=== PATIENT | male | born 1945 | race Caucasian/White ===

== ENCOUNTER → 2016-07-30 | Outpatient (REF) | payer MEDICARE, BC ==
[~2016-07-30] MED LIST: /CELE20CA PO; /PREG50CA PO; ASPI81TA4 PO; CALCIUM CITR PO; COMBO CREAM EXT; DOCU10ELUD PO; NUCY50TA PO; OMEP20TA7 PO; PERCOCET PO; VIT D PO; VITA-113 PO; ZOCO40TA PO; flaxseed PO
== END ==
LOC: M SFHCCLAY 08:52
PROVIDERS: ATTEND Family Medicine
DX: E11.40 Type 2 diabetes mellitus with diabetic neuropathy, unspecified (principal)
CPT/HCPCS: 83036; G0463

== ENCOUNTER 2017-04-23 06:53 | Day surgery (SDC) | payer MEDICARE, BC ==
[2017-04-23] MEDS: NS 1,000 ML IV (07:00)
[2017-04-23] MEDS ORDERED: PROPOFOL 200 MG/20 ML VIAL As Ordered ×2 (07:50)
[2017-04-23] MEDS ORDERED: LIDOCAINE 2% INJ 100 MG/5 ML SDV (FOR ANES.) As Ordered (07:50)
== END 2017-04-23 08:20 | disposition home or self-care (01) ==
LOC: M OPP 06:53
DX: Z12.11 Encounter for screening for malignant neoplasm of colon (principal); K57.30 Diverticulosis of large intestine without perforation or abscess without bleeding; K64.0 First degree hemorrhoids; K29.70 Gastritis, unspecified, without bleeding; I48.91 Unspecified atrial fibrillation; M31.30 Wegener's granulomatosis without renal involvement; E11.9 Type 2 diabetes mellitus without complications; E78.5 Hyperlipidemia, unspecified; Z88.8 Allergy status to other drugs, medicaments and biological substances; Z79.82 Long term (current) use of aspirin; Z79.899 Other long term (current) drug therapy
CPT/HCPCS: G0121

== ENCOUNTER → 2017-05-29 | Outpatient (CLI) | payer MEDICARE, BC | LOC: M CLY 13:00 | DX: J40 Bronchitis, not specified as acute or chronic (principal); J84.10 Pulmonary fibrosis, unspecified | CPT/HCPCS: 71046 ==

== ENCOUNTER → 2017-07-23 | Outpatient (REF) | payer MEDICARE, BC ==
[2017-07-26 00:06] LABS: MYCOPLASMA PNEUMONIAE IgG 191 U/mL (0-99); MYCOPLASMA PNEUMONIAE IgM <770 U/mL (0-769)
== END ==
LOC: M SFHCCLAY 07:30
DX: J18.0 Bronchopneumonia, unspecified organism (principal)
CPT/HCPCS: 86738

== ENCOUNTER → 2017-08-06 | Outpatient (CLI) | payer MEDICARE, BC | LOC: M CLY 09:27 | DX: B38.9 Coccidioidomycosis, unspecified (principal) | CPT/HCPCS: 71046 ==

== ENCOUNTER → 2017-10-15 | Outpatient (REF) | payer MEDICARE, BC ==
[2017-10-15 11:41] LABS: HEMATOCRIT 36.2 % (42.0-52.0); HEMOGLOBIN 11.6 g/dl (13.5-17.5); MEAN CORPUSCULAR HEMOGLOBIN 29.2 pg (27.0-33.0); MEAN CORPUSCULAR VOLUME 91.2 fl (80.0-96.0); PLATELET COUNT, AUTOMATED 209 10^3/uL (150-450); RED BLOOD COUNT 3.97 10^6/uL (4.30-6.10); RED CELL DISTRIBUTION WIDTH 15.4 % (11.5-14.5); WHITE BLOOD COUNT 7.3 10^3/uL (4.0-10.0)
[2017-10-15 12:07] LABS: ALBUMIN 3.7 GM/DL (3.2-5.2); ALBUMIN/GLOBULIN RATIO 1.37 (1.00-1.93); ALKALINE PHOSPHATASE 71 U/L (45-117); ALT/SGPT 26 U/L (12-78); ANION GAP 7 MEQ/L (8-16); AST/SGOT 20 U/L (7-37); BILIRUBIN,TOTAL 0.5 MG/DL (0.2-1.0); BLOOD UREA NITROGEN 28 MG/DL (7-18); CALCIUM LEVEL 8.5 MG/DL (8.8-10.2); CARBON DIOXIDE LEVEL 29 MEQ/L (21-32); CHLORIDE LEVEL 106 MEQ/L (98-107); CHOLESTEROL LEVEL 229 MG/DL (<200); CHOLESTEROL RISK RATIO 4.089 (<5); GLOMERULAR FILTRATION RATE > 60.0 (>42); GLUCOSE, FASTING 205 MG/DL (70-100); HDL CHOLESTEROL 56 MG/DL (>40); LDL CHOLESTEROL 157.8 MG/DL (<100); NON-HDL-C 173 MG/DL; POTASSIUM SERUM 4.5 MEQ/L (3.5-5.1); SODIUM LEVEL 142 MEQ/L (136-145); TOTAL PROTEIN 6.4 GM/DL (6.4-8.2); TRIGLYCERIDES LEVEL 76 MG/DL (<150)
[2017-10-15 13:21] LABS: ESTIMATED AVERAGE GLUCOSE 171 MG/DL (60-110); HEMOGLOBIN A1c 7.6 %
== END ==
LOC: M SFHCCLAY 08:38
DX: E09.9 Drug or chemical induced diabetes mellitus without complications (principal); D63.8 Anemia in other chronic diseases classified elsewhere
CPT/HCPCS: 84443

== ENCOUNTER → 2017-12-30 | Outpatient (CLI) | payer MEDICARE, BC | LOC: M CLY 08:26 | DX: R91.8 Other nonspecific abnormal finding of lung field (principal); Z79.899 Other long term (current) drug therapy | CPT/HCPCS: 71046 ==

== ENCOUNTER → 2018-08-19 | Outpatient (CLI) | payer MEDICARE, BC ==
[~2018-08-19] MED LIST changes: -/CELE20CA PO; -/PREG50CA PO; +CELE1CAP4 PO; +CELL500T PO; -DOCU10ELUD PO; +DOCU5LIQ PO; +GABA600T4 PO; +LYRI50CA PO; +METO1TAB32; +MULT1TAB10 PO; +MYCO500T PO; +OXYC1TAB23 PO; -PERCOCET PO; +VITA10002 PO; +VITA100067 PO
--- NOTE | 2018-08-19 12:20 | REP ---
Chest two views HISTORY: Cough Comparison: 12/30/2017 A minimal increase in interstitial markings is present in the lungs consistent with chronic inner fibrosis. The heart is normal in size. The pulmonary vasculature is normal in appearance. The bony structure is intact. An Ibjvjg-N-Iacy catheter is present. IMPRESSION: Chronic interstitial fibrosis.
== END ==
LOC: M CLY 11:26
PROVIDERS: ATTEND Family Medicine
DX: J84.112 Idiopathic pulmonary fibrosis (principal)

== ENCOUNTER → 2018-09-21 | Outpatient (CLI) | payer MEDICARE, BC ==
[~2018-09-21] MED LIST changes: +CYAN100049 PO; -VITA10002 PO
--- NOTE | 2018-09-21 17:17 | REP ---
CT chest without contrast: High resolution exam. History: Other nonspecific abnormal finding of the lung field. Inspiration and expiration views requested. No comparison chest CT. Comparison chest x-ray August 19, 2018. CT findings: 1 mm axial helically acquired images are reviewed. These are acquired at inspiration and expiration. Maximal intensity projection images are generated. There is a band of linear fibrosis in the left upper lobe near the apex. There is some mild linear fibrosis in the left base involving the lingula. There are mild patchy areas of subpleural interstitial fibrosis bilaterally in the upper lobes and right lower lobe. There is no diffuse interstitial fibrosis pattern. Expiration views show no evidence to suggest air trapping. There is a small bullous posteriorly in the right lower lobe. No pulmonary nodule or mass lesion is seen. Vascular calcification is noted. A right-sided Rklftd-G-Dlxs catheter is seen in place. There are granulomatous lymph node calcifications in the hilar regions bilaterally. There is no evidence of mass or adenopathy. There are granulomatous calcifications scattered in the liver and the spleen. No adrenal lesion is seen. There is an intrarenal calculus suspected in the upper pole of the left kidney. Impression: Scattered minimal areas of subpleural fibrosis. Bands of coarse linear fibrosis seen in the left upper lobe and both bases. Right-sided Ttfcbc-I-Fyrs. Granulomatous calcifications. Electronically Signed by Larry Wilkes MD 09/22/2018 07:45 A
== END ==
LOC: M RAD 15:33
PROVIDERS: ATTEND Internal Medicine Pulmonary Disease
DX: R91.8 Other nonspecific abnormal finding of lung field (principal)

== ENCOUNTER → 2018-09-24 | Outpatient (CLI) | payer MEDICARE, BC ==
[2018-09-24 19:05] LABS: C REACTIVE PROTEIN QUANTITATIV 0.56 MG/DL (0.00-0.30); RHEUMATOID FACTOR QUANT < 10.0 IU/ML (<15.0)
[2018-09-24 19:06] LABS: IMMUNOGLOBULIN E < 3.6 IU/ML (<100)
[2018-09-30 11:04] LABS: ANCA-ATYPICAL <1:20 titer (Neg:<1:20); ANGIOTENSIN 1 CONVERTING ENZYM 54 U/L (14-82); ANTINUCLEAR ANTIBODIES DIRECT Negative (Negative); ASPERGILLUS FUMIGATUS AB Negative (Negative); AUREOBASIDIUM PULLULANS Negative (Negative); CYCLIC CITRULLINATED PEPTIDE 2 units (0-19); CYTOPLASMIC NEUTROP AB ANCA-C <1:20 titer (Neg:<1:20); D001-IgE D pteronyssinus <0.10 kU/L (Class 0); E001-IgE Cat Epith/Dander < 0.10 kU/L (Class 0); E005-IgE Dog Dander < 0.10 kU/L (Class 0); G002-IgE Bermuda Grass < 0.10 kU/L (Class 0); G008-IgE Kentucky Bluegrass < 0.10 kU/L (Class 0); M001-IgE Penicillium chrysogen < 0.10 kU/L (Class 0); M002 IgE Cladosporium herbaru < 0.10 kU/L (Class 0); M003 IgE Aspergillus fumigatu < 0.10 kU/L (Class 0); M006-IgE Alternaria alternata < 0.10 kU/L (Class 0); MICROPOLYSPORA FAENI AB Negative (Negative); PERINUCLEAR AB ANCA-P <1:20 titer (Neg:<1:20); PIGEON SERUM AB Negative (Negative); SJOGREN'S ANTI SS-A <0.2 AI (0.0-0.9); SJOGREN'S ANTI SS-B <0.2 AI (0.0-0.9); T001-IgE Maple/Box Elder < 0.10 kU/L (Class 0); T003-IgE Common Silver Birch < 0.10 kU/L (Class 0); T006-IgE Cedar, Mountain < 0.10 kU/L (Class 0); T007-IgE Oak, White < 0.10 kU/L (Class 0); T008-IgE Elm, American < 0.10 kU/L (Class 0); T015-IgE Ash, White < 0.10 kU/L (Class 0); T041-IgE Hickory, White < 0.10 kU/L (Class 0); T070-IgE White Mulberry < 0.10 kU/L (Class 0); THERMOACTINOMYCES SACCHARI Negative (Negative); THERMOACTINOMYCES VULGARIS Negative (Negative); W001-IgE Ragweed, Short < 0.10 kU/L (Class 0); W009-IgE Plantain, English < 0.10 kU/L (Class 0); W014-IgE Pigweed, Rough < 0.10 kU/L (Class 0); W018-IgE Sheep Sorrel < 0.10 kU/L (Class 0)
== END ==
LOC: M SMT 11:03
PROVIDERS: ATTEND Internal Medicine Pulmonary Disease
DX: J84.10 Pulmonary fibrosis, unspecified (principal); J30.9 Allergic rhinitis, unspecified

== ENCOUNTER → 2018-11-30 | Outpatient (REF) | payer MEDICARE, BC ==
[2018-11-30 12:03] LABS: CHOLESTEROL RISK RATIO 3.704 (<5)
== END ==
LOC: M SFHCCLAY 07:14
PROVIDERS: ATTEND Family Medicine
DX: E11.40 Type 2 diabetes mellitus with diabetic neuropathy, unspecified (principal); E78.00 Pure hypercholesterolemia, unspecified

== ENCOUNTER → 2019-09-17 | Outpatient (REF) | payer MEDICARE, BC ==
[2019-09-17 16:16] LABS: APPEARANCE, URINE CLEAR (CLEAR); BACTERIA, URINE AUTO NEGATIVE (NEGATIVE); BILIRUBIN, URINE AUTO NEGATIVE (NEGATIVE); BLOOD, URINE BLOOD NEGATIVE (NEGATIVE); COLOR, URINE YELLOW (YELLOW); GLUCOSE, URINE (UA) AUTO NEGATIVE (NEGATIVE); KETONE, URINE AUTO NEGATIVE (NEGATIVE); LEUKOCYTE ESTERASE, URINE AUTO NEGATIVE (NEGATIVE); MUCUS, URINE SMALL (NEGATIVE); NITRITE, URINE AUTO NEGATIVE (NEGATIVE); PROTEIN, URINE AUTO NEGATIVE (NEGATIVE); RBC, URINE AUTO 0 /HPF (0-3); SPECIFIC GRAVITY URINE AUTO 1.021 (1.002-1.035); SQUAMOUS EPITHELIAL CELL UR AU 0 /HPF (0-6); UROBILINOGEN, URINE AUTO 0.2 mg/dL (0.0-2.0); WBC, URINE AUTO 0 /HPF (0-3)
[2019-09-17 16:18] LABS: BASO % 0.6 % (0.0-1.0); EOS # 0.2 10^3/uL (0.0-0.5); EOS % 2.5 % (0.0-3.0); HEMATOCRIT 38.1 % (42.0-52.0); HEMOGLOBIN 12.5 g/dl (13.5-17.5); LYMPH # 1.4 10^3/uL (1.5-5.0); LYMPH % 21.5 % (24.0-44.0); MEAN CORPUSCULAR HEMOGLOBIN 28.8 pg (27.0-33.0); MEAN CORPUSCULAR HGB CONC 32.8 g/dl (32.0-36.5); MEAN CORPUSCULAR VOLUME 87.8 fl (80.0-96.0); MONO # 0.7 10^3/uL (0.0-0.8); MONO % 11.5 % (0.0-5.0); NEUTROPHILS % 63.4 % (36.0-66.0); PLATELET COUNT, AUTOMATED 167 10^3/uL (150-450); RED BLOOD COUNT 4.34 10^6/uL (4.30-6.10); WHITE BLOOD COUNT 6.4 10^3/uL (4.0-10.0)
[2019-09-17 16:31] LABS: ALBUMIN 4.1 GM/DL (3.2-5.2); ALT/SGPT 22 U/L (12-78); BILIRUBIN,TOTAL 0.4 MG/DL (0.2-1.0); BLOOD UREA NITROGEN 26 MG/DL (7-18); C REACTIVE PROTEIN QUANTITATIV 0.39 MG/DL (0.00-0.30); CALCIUM LEVEL 8.5 MG/DL (8.8-10.2); CARBON DIOXIDE LEVEL 27 MEQ/L (21-32); CHLORIDE LEVEL 109 MEQ/L (98-107); CREATININE FOR GFR 1.05 MG/DL (0.70-1.30); GLOMERULAR FILTRATION RATE > 60.0 (>42); GLUCOSE, FASTING 120 MG/DL (70-100); POTASSIUM SERUM 4.3 MEQ/L (3.5-5.1); SODIUM LEVEL 139 MEQ/L (136-145); TOTAL PROTEIN 6.6 GM/DL (6.4-8.2)
[2019-09-17 17:01] LABS: ERYTHROCYTE SEDIMENTATION RATE 6 mm/hr (0-20)
[2019-09-21 16:08] LABS: ANCA-ATYPICAL <1:20 titer (Neg:<1:20); CYTOPLASMIC NEUTROP AB ANCA-C <1:20 titer (Neg:<1:20); PERINUCLEAR AB ANCA-P <1:20 titer (Neg:<1:20)
== END ==
LOC: M LABDRAWC 15:40
PROVIDERS: ATTEND Internal Medicine Rheumatology
DX: M31.31 Wegener's granulomatosis with renal involvement (principal)

== ENCOUNTER → 2019-10-06 | Outpatient (REF) | payer MEDICARE, BC ==
[2019-11-01 09:10] LABS: HEMOGLOBIN 13.8 g/dl (13.5-17.5); MEAN CORPUSCULAR HEMOGLOBIN 28.5 pg (27.0-33.0); MEAN CORPUSCULAR HGB CONC 32.1 g/dl (32.0-36.5); MEAN CORPUSCULAR VOLUME 88.7 fl (80.0-96.0); PLATELET COUNT, AUTOMATED 164 10^3/uL (150-450); RED BLOOD COUNT 4.85 10^6/uL (4.30-6.10)
[2019-11-10 22:37] LABS: ALBUMIN 4.4 GM/DL (3.2-5.2); ALT/SGPT 35 U/L (12-78); BILIRUBIN,TOTAL 0.5 MG/DL (0.2-1.0); BLOOD UREA NITROGEN 26 MG/DL (7-18); CALCIUM LEVEL 8.9 MG/DL (8.8-10.2); CARBON DIOXIDE LEVEL 30 MEQ/L (21-32); CHLORIDE LEVEL 106 MEQ/L (98-107); CREATININE FOR GFR 1.21 MG/DL (0.70-1.30); GLOMERULAR FILTRATION RATE > 60.0 (>42); GLUCOSE, FASTING 166 MG/DL (70-100); HEMOGLOBIN A1c 6.6 %; IRON (FE) 68 UG/DL (65-175); PERCENT SATURATION 19.7 % (19.7-50.0); POTASSIUM SERUM 4.7 MEQ/L (3.5-5.1); SODIUM LEVEL 141 MEQ/L (136-145); TOTAL IRON BINDING CAPACITY 346 UG/DL (250-450); TOTAL PROTEIN 6.9 GM/DL (6.4-8.2)
== END ==
LOC: M SFHCCLAY 06:26
PROVIDERS: ATTEND Family Medicine
DX: E11.9 Type 2 diabetes mellitus without complications (principal); D50.9 Iron deficiency anemia, unspecified
CPT/HCPCS: 36415; 80053; 83036; 83550; 85027; G0463

== ENCOUNTER → 2020-03-07 | Outpatient (REF) | payer MEDICARE, BC | LOC: M SFHCCLAY 15:16 | PROVIDERS: ATTEND Family Medicine | DX: M31.31 Wegener's granulomatosis with renal involvement (principal); E11.40 Type 2 diabetes mellitus with diabetic neuropathy, unspecified ==

== ENCOUNTER → 2020-03-08 | Outpatient (REF) | payer MEDICARE, BC ==
[2020-03-08 11:31] LABS: BASO % 0.3 % (0.0-1.0); EOS % 0.3 % (0.0-3.0); HEMATOCRIT 42.7 % (42.0-52.0); HEMOGLOBIN 13.5 g/dl (13.5-17.5); LYMPH # 0.9 10^3/uL (1.5-5.0); LYMPH % 24.5 % (24.0-44.0); MEAN CORPUSCULAR HEMOGLOBIN 28.1 pg (27.0-33.0); MEAN CORPUSCULAR HGB CONC 31.6 g/dl (32.0-36.5); MEAN CORPUSCULAR VOLUME 88.8 fl (80.0-96.0); MONO # 0.6 10^3/uL (0.0-0.8); MONO % 17.6 % (0.0-5.0); NEUTROPHILS % 56.7 % (36.0-66.0); PLATELET COUNT, AUTOMATED 150 10^3/uL (150-450); RED BLOOD COUNT 4.81 10^6/uL (4.30-6.10); WHITE BLOOD COUNT 3.5 10^3/uL (4.0-10.0)
[2020-03-08 11:55] LABS: BLOOD UREA NITROGEN 17 MG/DL (7-18); C REACTIVE PROTEIN QUANTITATIV 5.87 MG/DL (0.00-0.30); CALCIUM LEVEL 8.8 MG/DL (8.8-10.2); CARBON DIOXIDE LEVEL 32 MEQ/L (21-32); CHLORIDE LEVEL 102 MEQ/L (98-107); CREATININE FOR GFR 1.11 MG/DL (0.70-1.30); GLOMERULAR FILTRATION RATE > 60.0 (>42); GLUCOSE, FASTING 212 MG/DL (70-100); POTASSIUM SERUM 4.5 MEQ/L (3.5-5.1); SODIUM LEVEL 136 MEQ/L (136-145)
[2020-03-08 12:20] LABS: ERYTHROCYTE SEDIMENTATION RATE 34 mm/hr (0-20)
[2020-03-08 14:40] LABS: HEMOGLOBIN A1c 10.1 %
== END ==
LOC: M SFHCCLAY 08:42
PROVIDERS: ATTEND Family Medicine
DX: M31.31 Wegener's granulomatosis with renal involvement (principal); E11.40 Type 2 diabetes mellitus with diabetic neuropathy, unspecified

== ENCOUNTER 2020-03-15 12:34 | Inpatient (IN) | payer MEDICARE, BC ==
[~2020-03-15] VITALS: Ht 182.9 cm; Wt 104.5 kg
[~2020-03-15 12:34] MED LIST changes: -METO1TAB32; +METO1TAB32 PO
[2020-03-15 14:00] LABS: BASO % 0.3 % (0.0-1.0); HEMATOCRIT 39.9 % (42.0-52.0); HEMOGLOBIN 12.6 g/dl (13.5-17.5); LYMPH # 0.4 10^3/uL (1.5-5.0); LYMPH % 11.1 % (24.0-44.0); MEAN CORPUSCULAR HEMOGLOBIN 27.6 pg (27.0-33.0); MEAN CORPUSCULAR HGB CONC 31.6 g/dl (32.0-36.5); MEAN CORPUSCULAR VOLUME 87.5 fl (80.0-96.0); MONO # 0.5 10^3/uL (0.0-0.8); MONO % 13.6 % (0.0-5.0); NEUTROPHILS # 2.7 10^3/uL (1.5-8.5); NEUTROPHILS % 73.9 % (36.0-66.0); PLATELET COUNT, AUTOMATED 176 10^3/uL (150-450); RED BLOOD COUNT 4.56 10^6/uL (4.30-6.10); WHITE BLOOD COUNT 3.6 10^3/uL (4.0-10.0)
--- NOTE | 2020-03-15 14:12 | REP ---
INDICATION: SOB COMPARISON: 08/19/2018 TECHNIQUE: Portable AP view of the chest FINDINGS: The mediastinum and cardiac silhouette are stable and within normal limits for portable technique. Qnvhjf-M-Rmfh with tip in the SVC remains stable. The lung cartagena demonstrate patchy bilateral airspace disease primarily along the periphery of the left lower lobe and in the right base. No obvious effusion. No pneumothorax. IMPRESSION: Chronic changes with superimposed infiltrates <Electronically signed by Giancarlo Jade > 03/15/20 [id number]
[2020-03-15 14:21] LABS: ERYTHROCYTE SEDIMENTATION RATE 18 mm/hr (0-20)
[2020-03-15 14:35] LABS: ALBUMIN 3.4 GM/DL (3.2-5.2); ALT/SGPT 20 U/L (12-78); BILIRUBIN,DIRECT 0.2 MG/DL (0.0-0.2); BILIRUBIN,TOTAL 0.7 MG/DL (0.2-1.0); BLOOD UREA NITROGEN 15 MG/DL (7-18); CALCIUM LEVEL 8.7 MG/DL (8.8-10.2); CARBON DIOXIDE LEVEL 26 MEQ/L (21-32); CHLORIDE LEVEL 101 MEQ/L (98-107); CREATININE FOR GFR 0.95 MG/DL (0.70-1.30); GLOMERULAR FILTRATION RATE > 60.0 (>42); GLUCOSE, FASTING 195 MG/DL (70-100); POTASSIUM SERUM 4.3 MEQ/L (3.5-5.1); SODIUM LEVEL 133 MEQ/L (136-145); TOTAL PROTEIN 6.6 GM/DL (6.4-8.2)
[2020-03-15 14:45] LABS: RSV AMPLIFICATION NEGATIVE (NEGATIVE)
[2020-03-15 15:19] LABS: FERRITIN 856 NG/ML (26-388); TROPONIN I < 0.02 NG/ML (< 0.10)
[2020-03-15] MEDS ORDERED: METF500T13 PO (15:52)
[2020-03-15] MEDS ORDERED: BACT800T5 PO (15:52)
[2020-03-15] MEDS ORDERED: GLIM2TAB4 PO (15:52)
[2020-03-15] MEDS ORDERED: SIMV40TA20 PO (15:52)
[2020-03-15] MEDS ORDERED: ACETAMINOPHEN TAB 650MG DOSE (2X325MG) PO PRN (18:00)
[2020-03-15] MEDS ORDERED: GLUCAGON INJ 1MG VIAL SC PRN (18:15)
[2020-03-15] MEDS ORDERED: DEXTROSE 50% 50 ML SYRINGE IV PRN (18:15)
[2020-03-15] MEDS ORDERED: GLUCOSE 4GM CHEW TABLET PO PRN (18:15)
--- NOTE | 2020-03-15 18:19 | HPEPDOC ---
General Date of Admission Date of Service: Mar 15, 2020 Chief Complaint The patient is a 74-year-old male admitted with a reason for visit of Shortness Of Breath. Source: Patient Exam Limitations: No limitations Timing/Duration: Day(s) Severity: Moderate History of Present Illness Patient 69 years old male with past history of GPA, GERD, coronary artery diseases presented to the hospital with shortness of breath. Patient stated that for past few days he has been having increased cough and shortness of breath. In ER patient was tested positive for Covid 19. Chest x-ray showed The lung cartagena demonstrate patchy bilateral airspace disease primarily along the periphery of the left lower lobe and in the right base. No obvious effusion. D-dimer 1200. Home Medications Scheduled Aspirin (Aspirin EC) 81 Mg Tab, 81 MG PO DAILY, (Reported) Gabapentin (Gabapentin) 600 Mg Tab, 600 MG PO BID, (Reported) Metformin HCl (Metformin HCl) 500 Mg Tablet, 500 MG PO DAILY, (Reported) QD FOR ONE WEEK, THEN BID PER DR. PARISH Metoprolol Succinate (Metoprolol Succinate) 25 Mg Tab, 25 MG PO QHS, (Reported) Mycophenolate Mofetil (Mycophenolate Mofetil) 500 Mg Tab, 1,000 MG PO BID, (Reported) Simvastatin (Simvastatin) 40 Mg Tablet, 40 MG PO QHS, (Reported) Sulfamethoxazole/Trimethoprim (Bactrim Ds Tablet) 1 Each Tablet, 1 TAB PO 3XW, (Reported) TAKES MWF Miscellaneous Medications Glimepiride (Glimepiride) 2 Mg Tablet, 2 MG PO, (Reported) Allergies Coded Allergies: nitroglycerin (Verified Adverse Reaction, Mild, SEVERE HYPOTENSION, 03/15/20) tramadol (Verified Adverse Reaction, Mild, LIGHT-HEADED, DEPRESSION, 03/15/20) Past Medical History Medical History Diabetes type 2 CAD COPD GPA: RHEUMATOLOGY GERD WITH STRICTURE SPIROMETRY SHINGLES VACCINE AND TDAP-07/13/13-[place] EPISODE OF AFIB COMPLICATING PULMONARY HEMORRHAGE ASSOCIATED WITH [employer]ERS'. 2014 DVT LEFT LEG WHILE HOSPITALIZED WITH PULMONARY HEMORRHAGE 2014 Surgical History CHEST TUBE PLACED AND REINFLATED LUNG JULY 2009 REPAIRED HOLE IN LUNG OCT 2009 LOWER BACK SURGERY UGI ENDOSCOPY WITH DILATION OF STRICTURE 01/2011 BACK SURGERY ([facility]) 2012 LEFT ANKLE REPLACEMENT- [facility] 11/2016 Family History FATHER: , EMPHYSEMA MOTHER: , CARDIAC DISEASE 2 BROTHER(S) , 3 SISTER(S) - HEALTHY. 2 SON(S) - HEALTHY. Social History * Smoker: former Smoker Alcohol: Denies Drugs: denies A-FIB/CHADSVASC A-FIB History Current/History of A-Fib/PAF?: No Current PO Anticoag Therapy: No Review of Systems Constitutional: Reports: Chills; Denies: Fever Eyes: Denies: Pain ENT: Denies: Head Aches Skin: Denies: Rash, Lesions Pulmonary: Reports: Dyspnea, Cough, Pleuritic Chest Pain Cardiovascular: Denies: Palpitations, Orthopnea Gastrointestinal: Denies: Nausea, Vomiting Genitourinary: Denies: Dysuria, Frequency Hematologic: Denies: Bruising Musculoskeletal: Denies: Neck Pain Neurological: Denies: Weakness Psych: Reports: Mood Normal Physical Examination General Exam: Positive: Alert, Cooperative Eye Exam: Positive: PERRLA ENT Exam: Positive: Atraumatic Neck Exam: Positive: Supple; Negative: JVD Chest Exam: Positive: Rhonchi (bilaterally) Heart Exam: Negative: Rate Normal Telemetry: Negative: No significant arrhythmia Abdomen Exam: Positive: Normal bowel sounds Extremity Exam: Negative: Cyanosis Skin Exam: Positive: Nl turgor and temperature Neuro Exam: Positive: Strength at 5/5 X4 ext Psych Exam: Positive: Mental status NL Vital Signs Vital Signs Date Time Temp Pulse Resp B/P (MAP) Pulse Ox O2 Delivery O2 Flow Rate FiO2 03/15/20 13:43 78 93 03/15/20 13:37 115/65 (82) Room Air 03/15/20 13:19 24 03/15/20 13:04 98.7 Laboratory Data Labs 24H Laboratory Tests 2 03/15/20 13:24: Immature Granulocyte % (Auto) 1.1, Neutrophils (%) (Auto) 73.9H, Lymphocytes (%) (Auto) 11.1L, Monocytes (%) (Auto) 13.6H, Eosinophils (%) (Auto) 0.0, Basophils (%) (Auto) 0.3, Neutrophils # (Auto) 2.7, Lymphocytes # (Auto) 0.4L, Monocytes # (Auto) 0.5, Eosinophils # (Auto) 0.0, Basophils # (Auto) 0.0, Nucleated Red Blood Cells % (auto) 0.0, Erythrocyte Sedimentation Rate 18, D-Dimer, Quantitative 1224.39H, Anion Gap 6L, Glomerular Filtration Rate > 60.0, Calcium Level 8.7L, Ferritin 856H, Total Bilirubin 0.7, Direct Bilirubin 0.2, Aspartate Amino Transf (AST/SGOT) 27, Alanine Aminotransferase (ALT/SGPT) 20, Alkaline Phosphatase 72, Troponin I < 0.02, C-Reactive Protein, Quantitative 14.80H, Total Protein 6.6, Albumin 3.4, Albumin/Globulin Ratio 1.1 03/15/20 13:42: Coronavirus (COVID-19)(PCR) POSITIVEA, Influenza Type A (RT-PCR) NEGATIVE, Influenza Type B (RT-PCR) NEGATIVE, Respiratory Syncytial Virus (PCR) NEGATIVE CBC/BMP Laboratory Tests 03/15/20 13:24 Assessment/Plan atient 69 years old male with past history of GPA, GERD, coronary artery diseases presented to the hospital with shortness of breath. Patient stated that for past few days he has been having increased cough and shortness of breath. In ER patient was tested positive for Covid 19. Chest x-ray showed The lung cartagena demonstrate patchy bilateral airspace disease primarily along the periphery of the left lower lobe and in the right base. No obvious effusion. D-dimer 1200. Problems (1) Pneumonia due to COVID-19 virus Status: Acute Problem Text: Labs according to COvid protocol D-dimer around 1200, sedimentation rate 18 , ferritin around 800 Started Remdesevir, dexamethasone Inhalers (2) Hypoxia Status: Acute Problem Text: Secondary to viral pneumonia due to COVID 19 (3) History of Rosalba's granulomatosis Status: Acute Problem Text: I stopped mycophenolate due to acute pneumonia (4) Diabetes mellitus Status: Chronic Problem Text: HbA1c 10 Poorly controlled diabetes Insulin sliding scale Diabetes diet Detemir BID Plan / VTE VTE Prophylaxis Ordered?: Yes CHERRI MUÑOZ DO Mar 15, 2020 18:18
[2020-03-15] MEDS ORDERED: IPRATROPIUM 0.5MG/ALBUTEROL 2.5MG INH SOL UD 3ML (DUONEB) INH SCH (20:00)
[2020-03-15] MEDS: HumaLOG INSULIN (NovoLOG) PER UNIT SC SCH (21:00)
[2020-03-15 23:30] VITALS: BP 113/67
[2020-03-16] MEDS ORDERED: REMDESIVIR 200 MG in NS 250 ML IV ONE ×2
[2020-03-16] MEDS ORDERED: COMBIVENT RESPIMAT 100-20MCG INHALER 4GM INH PRN (00:30)
[2020-03-16] MEDS ORDERED: SODIUM CHLORIDE 0.9% INJ 10 ML SYR IV ONE (01:00)
[2020-03-16] MEDS: GABAPENTIN 300 MG CAP PO SCH ×3 (01:07→21:27)
[2020-03-16] MEDS: METOPROLOL SUCC *XL* 25MG TAB (TopROL *XL*) PO SCH ×2 (01:08→21:35)
[2020-03-16] MEDS: SIMVASTATIN 40 MG TAB PO SCH ×2 (01:08→21:26)
[2020-03-16 04:00] VITALS: BP 128/66
--- NOTE | 2020-03-16 05:24 | ECGEPIP ---
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
[2020-03-16] MEDS: HumaLOG INSULIN (NovoLOG) PER UNIT SC SCH ×4 (07:30→21:33)
[2020-03-16 07:39] LABS: BASO % 0.4 % (0.0-1.0); HEMATOCRIT 35.5 % (42.0-52.0); HEMOGLOBIN 11.2 g/dl (13.5-17.5); LYMPH # 0.5 10^3/uL (1.5-5.0); MEAN CORPUSCULAR HEMOGLOBIN 27.6 pg (27.0-33.0); MEAN CORPUSCULAR HGB CONC 31.5 g/dl (32.0-36.5); MEAN CORPUSCULAR VOLUME 87.4 fl (80.0-96.0); MONO # 0.5 10^3/uL (0.0-0.8); MONO % 18.1 % (0.0-5.0); NEUTROPHILS # 1.6 10^3/uL (1.5-8.5); PLATELET COUNT, AUTOMATED 169 10^3/uL (150-450); RED BLOOD COUNT 4.06 10^6/uL (4.30-6.10); WHITE BLOOD COUNT 2.6 10^3/uL (4.0-10.0)
[2020-03-16 07:59] LABS: INR 1.08; PROTHROMBIN TIME 14.2 SECONDS (12.5-14.3)
[2020-03-16 08:00] LABS: PARTIAL THROMBOPLASTIN TIME 34.9 SECONDS (24.2-38.5)
[2020-03-16 08:06] LABS: ALBUMIN 2.8 GM/DL (3.2-5.2); ALT/SGPT 21 U/L (12-78); BILIRUBIN,DIRECT 0.1 MG/DL (0.0-0.2); BILIRUBIN,TOTAL 0.3 MG/DL (0.2-1.0); BLOOD UREA NITROGEN 16 MG/DL (7-18); CALCIUM LEVEL 7.7 MG/DL (8.8-10.2); CARBON DIOXIDE LEVEL 25 MEQ/L (21-32); CHLORIDE LEVEL 105 MEQ/L (98-107); FERRITIN 800 NG/ML (26-388); GLOMERULAR FILTRATION RATE > 60.0 (>42); GLUCOSE, FASTING 183 MG/DL (70-100); MAGNESIUM LEVEL 1.6 MG/DL (1.8-2.4); NT-PRO BNP 153 PG/ML (<450); POTASSIUM SERUM 4.3 MEQ/L (3.5-5.1); SODIUM LEVEL 137 MEQ/L (136-145); TOTAL PROTEIN 5.6 GM/DL (6.4-8.2); TROPONIN I < 0.02 NG/ML (< 0.10)
[2020-03-16] MEDS ORDERED: ASPIRIN 81 MG ENTERIC TAB PO SCH (09:00)
[2020-03-16] MEDS ORDERED: dexameTHASONE 4 MG/ML 1ML VIAL (J1100 PER 1MG) IV SCH (09:00)
[2020-03-16] MEDS ORDERED: ENOXAPARIN 40MG/0.4ML SYRINGE (J1650 PER 10MG) SC SCH (09:00)
[2020-03-16 12:00] VITALS: BP 111/70
--- NOTE | 2020-03-16 12:57 | IPNPDOC ---
Text Note Date of Service The patient was seen on 03/16/20. NOTE SUBJECTIVE: -On 2L NC this morning -No acute events overnight Physical Examination General: NAD Eyes: EOMI, anicteric, no injection ENT: Atraumatic Neck: Supple, no JVD Chest: Scattered rhonchi, otherwise some diminished air movement without aminta crackles or wheezing Heart: RRR, no mrg Abdomen: Normal bowel sounds, soft, NTND Extremities: WWP, no LE edema Neuro: Clear speech, Strength at 5/5 X4 ext, CN 3-12 intact Psych: Mental status NL, AOx3 Labs: Reviewed. See below for details Imaging: The lung cartagena demonstrate patchy bilateral airspace disease primarily along t he periphery of the left lower lobe and in the right base Assessment: 69 yo M with past history of GPA, GERD, coronary artery diseases presented to the hospital with shortness of breath and admitte for Covid 19 PNA and hypoxemic respiratory failure. Plan: Covid-19 Pneumonia: -Labs according to Covid protocol -Day #2 of Remdesevir -DC dexamethasone for c/f risk for infection because he is already on mycophenolate for Rosalba's per recommendations of Dr. Issa -continue mdi's -incentive spirometry -supplemental O2 to goal >92% Hypoxemic respiratory failure 2/2 covid-19 PNA: -supplemental O2 to goal >92% -treatment for covid-19 PNA per above History of Rosalba's granulomatosis -resume home mycophenolate per recommendation of pulm (Dr. Issa) Diabetes mellitus -HbA1c 10: Poorly controlled diabetes -Insulin sliding scale -Diabetes diet -Detemir BID per home script DVT ppx: lovenox once daily Dispo: 4 main VS,Fishbone, I+O VS, Fishbone, I+O Laboratory Tests 03/15/20 13:24 03/16/20 06:53 Vital Signs Date Time Temp Pulse Resp B/P (MAP) Pulse Ox O2 Delivery O2 Flow Rate FiO2 03/16/20 04:00 99.4 81 18 128/66 (86) 93 Nasal Cannula 03/15/20 18:15 2.0 I&O- Last 24 Hours up to 6 AM 03/16/20 06:00 Intake Total 0 ml Output Total 0 ml Balance 0 ml SAÚL ALEXANDRA MD Mar 16, 2020 10:10
[2020-03-16] MEDS: ENOXAPARIN 40MG/0.4ML SYRINGE (J1650 PER 10MG) SC SCH (21:26)
[2020-03-16] MEDS: MYCOPHENOLATE MOFETIL 250 MG CAP (J7517) PO SCH (21:27)
[2020-03-16 21:41] VITALS: BP 146/65
[2020-03-17] MEDS: SODIUM CHLORIDE 0.9% INJ 10 ML SYR IV SCH (00:02)
[2020-03-17] MEDS: REMDESIVIR 100 MG in NS 250 ML IV SCH (00:02)
[2020-03-17 04:00] VITALS: BP 126/76
[2020-03-17 06:18] LABS: HEMATOCRIT 37.5 % (42.0-52.0); HEMOGLOBIN 11.6 g/dl (13.5-17.5); LYMPH # 0.5 10^3/uL (1.5-5.0); LYMPH % 19.4 % (24.0-44.0); MEAN CORPUSCULAR HEMOGLOBIN 26.9 pg (27.0-33.0); MEAN CORPUSCULAR HGB CONC 30.9 g/dl (32.0-36.5); MEAN CORPUSCULAR VOLUME 86.8 fl (80.0-96.0); MONO # 0.4 10^3/uL (0.0-0.8); MONO % 16.9 % (0.0-5.0); NEUTROPHILS # 1.5 10^3/uL (1.5-8.5); NEUTROPHILS % 62.5 % (36.0-66.0); PLATELET COUNT, AUTOMATED 211 10^3/uL (150-450); RED BLOOD COUNT 4.32 10^6/uL (4.30-6.10); WHITE BLOOD COUNT 2.4 10^3/uL (4.0-10.0)
[2020-03-17 06:45] LABS: INR 1.03; PROTHROMBIN TIME 13.7 SECONDS (12.5-14.3)
[2020-03-17 06:46] LABS: PARTIAL THROMBOPLASTIN TIME 39.1 SECONDS (24.2-38.5)
[2020-03-17 06:48] LABS: ALT/SGPT 26 U/L (12-78); BILIRUBIN,DIRECT 0.1 MG/DL (0.0-0.2); BILIRUBIN,TOTAL 0.3 MG/DL (0.2-1.0); BLOOD UREA NITROGEN 21 MG/DL (7-18); CALCIUM LEVEL 8.1 MG/DL (8.8-10.2); CARBON DIOXIDE LEVEL 25 MEQ/L (21-32); CHLORIDE LEVEL 102 MEQ/L (98-107); FERRITIN 924 NG/ML (26-388); GLOMERULAR FILTRATION RATE > 60.0 (>42); GLUCOSE, FASTING 250 MG/DL (70-100); NT-PRO BNP 391 PG/ML (<450); POTASSIUM SERUM 4.5 MEQ/L (3.5-5.1); SODIUM LEVEL 135 MEQ/L (136-145); TOTAL PROTEIN 6.1 GM/DL (6.4-8.2); TROPONIN I < 0.02 NG/ML (< 0.10)
[2020-03-17 08:00] VITALS: BP 107/59
[2020-03-17] MEDS: MYCOPHENOLATE MOFETIL 250 MG CAP (J7517) PO SCH ×2 (08:28→21:08)
[2020-03-17] MEDS: BACTRIM 160MG/800MG DS TAB PO SCH (08:28)
[2020-03-17] MEDS: ENOXAPARIN 40MG/0.4ML SYRINGE (J1650 PER 10MG) SC SCH ×2 (08:29→21:09)
[2020-03-17] MEDS: GABAPENTIN 300 MG CAP PO SCH ×2 (08:30→21:07)
[2020-03-17] MEDS: FERROUS SULFATE 325MG TAB PO SCH (11:19)
[2020-03-17] MEDS: metFORMIN (GLUCOPHAGE) 500 MG TAB PO SCH (11:19)
[2020-03-17] MEDS: DOCUSATE SODIUM 100MG CAPSULE PO SCH ×2 (11:19→21:07)
[2020-03-17] MEDS: cefTRIAXone SOD 1 GM in D5W MINI-BAG PLUS 50 ML IV SCH (11:19)
[2020-03-17] MEDS: GLIMEPIRIDE 2 MG TAB PO SCH (11:29)
[2020-03-17 11:34] VITALS: BP 107/58
[2020-03-17] MEDS ORDERED: DOXYCYCLINE HYCLATE 100 MG in D5W MINI-BAG PLUS 100 ML IV SCH (12:00)
--- NOTE | 2020-03-17 14:25 | IPNPDOC ---
Text Note Date of Service The patient was seen on 03/17/20. NOTE SUBJECTIVE: -On 2L NC this morning -No acute events overnight. -Requesting his home PO antihyperglycemics and refusing insulin. He is taking good PO, so will safely restart his glimepiride and metformin. Also requested ASA81 to be switched to QHS and asking for colace -On speaking with Dr. Issa, given the fever and leukopenia while on mycophenolate to start empiric CFX/doxy, despite negative procal. Will also adjust mycophenolate dose from 1g BID to 500mg BID during acute infection per discussion with Dr. Issa. Physical Examination General: NAD Eyes: EOMI, anicteric, no injection ENT: Atraumatic Neck: Supple, no JVD Chest: Scattered rhonchi, otherwise some diminished air movement without aminta crackles or wheezing Heart: RRR, no mrg Abdomen: Normal bowel sounds, soft, NTND Extremities: WWP, no LE edema Neuro: Clear speech, Strength at 5/5 X4 ext, CN 3-12 intact Psych: Mental status NL, AOx3 : with severe erythema in groin folds Labs: Reviewed. See below for details Imaging: The lung cartagena demonstrate patchy bilateral airspace disease primarily along t he periphery of the left lower lobe and in the right base Assessment: 69 yo M with past history of GPA, GERD, coronary artery diseases presented to the hospital with shortness of breath and admitte for Covid 19 PNA and hypoxemic respiratory failure. Plan: Covid-19 Pneumonia: -Labs according to Covid protocol -Day #2 of Remdesevir -DC dexamethasone for c/f risk for infection because he is already on mycophenolate for Rosalba's per recommendations of Dr. Issa -continue mdi's -incentive spirometry -supplemental O2 to goal >92% -start empiric CFX/doxy, and send sputum if expectorated Hypoxemic respiratory failure 2/2 covid-19 PNA: -supplemental O2 to goal >92% -treatment for covid-19 PNA per above History of Rosalba's granulomatosis -reduce home mycophenolate to 500mg BID per recommendation of pulm (Dr. Issa) Diabetes mellitus -DC Insulin sliding scale, patient refusing -Diabetes diet -Will restart his home glimepiride and metformin. Taking good PO. Groin fols fungal infection -nystatin cream TID DVT ppx: lovenox once daily Dispo: 4 main VS,Fishbone, I+O VS, Fishbone, I+O Laboratory Tests 03/17/20 05:51 Vital Signs Date Time Temp Pulse Resp B/P (MAP) Pulse Ox O2 Delivery O2 Flow Rate FiO2 03/17/20 08:00 97.0 61 20 107/59 (75) 94 Nasal Cannula 2.0 I&O- Last 24 Hours up to 6 AM 03/17/20 06:00 Intake Total 2751 ml Output Total 1250 ml Balance 1501 ml SAÚL ALEXANDRA MD Mar 17, 2020 09:52
[2020-03-17 16:00] VITALS: BP 138/65
[2020-03-17] MEDS: NYSTATIN CREAM 15 GM TOP SCH ×2 (16:43→21:00)
[2020-03-17] MEDS: SIMVASTATIN 40 MG TAB PO SCH (21:07)
[2020-03-17] MEDS: ASPIRIN 81 MG ENTERIC TAB PO SCH (21:07)
[2020-03-17] MEDS: METOPROLOL SUCC *XL* 25MG TAB (TopROL *XL*) PO SCH (21:08)
[2020-03-17 22:00] VITALS: BP 136/68
[2020-03-18] MEDS: REMDESIVIR 100 MG in NS 250 ML IV SCH (00:16)
[2020-03-18] MEDS ORDERED: NS 500 ML IV SCH (02:15)
[2020-03-18] MEDS ORDERED: NS 1,000 ML IV SCH (02:15)
[2020-03-18] MEDS: SODIUM CHLORIDE 0.9% INJ 10 ML SYR IV SCH (03:59)
[2020-03-18] MEDS: DOXYCYCLINE HYCLATE 100 MG in D5W MINI-BAG PLUS 100 ML IV SCH ×2 (04:11→12:02)
[2020-03-18 06:00] VITALS: BP 133/63
[2020-03-18 08:00] VITALS: BP 128/63
[2020-03-18] MEDS: DOCUSATE SODIUM 100MG CAPSULE PO SCH ×2 (08:10→21:48)
[2020-03-18] MEDS: ENOXAPARIN 40MG/0.4ML SYRINGE (J1650 PER 10MG) SC SCH ×2 (08:10→21:47)
[2020-03-18] MEDS: GABAPENTIN 300 MG CAP PO SCH ×2 (08:11→21:48)
[2020-03-18] MEDS: metFORMIN (GLUCOPHAGE) 500 MG TAB PO SCH (08:11)
[2020-03-18] MEDS: MYCOPHENOLATE MOFETIL 250 MG CAP (J7517) PO SCH ×2 (08:11→21:48)
[2020-03-18] MEDS: FERROUS SULFATE 325MG TAB PO SCH (08:11)
[2020-03-18] MEDS: GLIMEPIRIDE 2 MG TAB PO SCH (08:12)
[2020-03-18] MEDS: NYSTATIN CREAM 15 GM TOP SCH ×3 (08:13→21:00)
[2020-03-18 09:07] LABS: BASO % 0.2 % (0.0-1.0); HEMATOCRIT 33.8 % (42.0-52.0); HEMOGLOBIN 10.8 g/dl (13.5-17.5); LYMPH # 0.6 10^3/uL (1.5-5.0); LYMPH % 13.6 % (24.0-44.0); MEAN CORPUSCULAR HEMOGLOBIN 27.6 pg (27.0-33.0); MEAN CORPUSCULAR VOLUME 86.4 fl (80.0-96.0); MONO # 0.5 10^3/uL (0.0-0.8); MONO % 10.6 % (0.0-5.0); NEUTROPHILS # 3.5 10^3/uL (1.5-8.5); NEUTROPHILS % 74.5 % (36.0-66.0); PLATELET COUNT, AUTOMATED 194 10^3/uL (150-450); RED BLOOD COUNT 3.91 10^6/uL (4.30-6.10); WHITE BLOOD COUNT 4.6 10^3/uL (4.0-10.0)
[2020-03-18 09:33] LABS: ALBUMIN 2.5 GM/DL (3.2-5.2); ALT/SGPT 21 U/L (12-78); BILIRUBIN,DIRECT 0.1 MG/DL (0.0-0.2); BILIRUBIN,TOTAL 0.3 MG/DL (0.2-1.0); BLOOD UREA NITROGEN 23 MG/DL (7-18); C REACTIVE PROTEIN QUANTITATIV 7.72 MG/DL (0.00-0.30); CALCIUM LEVEL 7.1 MG/DL (8.8-10.2); CARBON DIOXIDE LEVEL 23 MEQ/L (21-32); CHLORIDE LEVEL 106 MEQ/L (98-107); CREATININE FOR GFR 0.92 MG/DL (0.70-1.30); FERRITIN 811 NG/ML (26-388); GLOMERULAR FILTRATION RATE > 60.0 (>42); GLUCOSE, FASTING 254 MG/DL (70-100); NT-PRO BNP 340 PG/ML (<450); POTASSIUM SERUM 3.9 MEQ/L (3.5-5.1); SODIUM LEVEL 136 MEQ/L (136-145)
[2020-03-18 09:53] LABS: INR 1.13; PROTHROMBIN TIME 14.8 SECONDS (12.5-14.3)
[2020-03-18 09:54] LABS: PARTIAL THROMBOPLASTIN TIME 36.1 SECONDS (24.2-38.5)
[2020-03-18 09:56] LABS: D-DIMER QUANT 1121.7 ng/ml (<500)
[2020-03-18] MEDS: dexameTHASONE 20MG/5ML VIAL (J1100 PER 1MG) IV SCH (10:41)
[2020-03-18] MEDS: cefTRIAXone SOD 1 GM in D5W MINI-BAG PLUS 50 ML IV SCH (10:41)
[2020-03-18] MEDS: HumaLOG INSULIN (NovoLOG) PER UNIT SC SCH ×3 (12:03→21:47)
--- NOTE | 2020-03-18 14:51 | IPNPDOC ---
Text Note Date of Service The patient was seen on 03/18/20. NOTE SUBJECTIVE: -On 4-5L NC this morning -No acute events overnight. -Because of the worsening hypoxemia, I discussed at length his GPA history with Dr. Washington (PCP) per patient's requested and we agreed that it was inidicated to reduce his mycophenolate dose to 500mg BID and start dexamethasone at this time while switching him from his oral antihyperglycemics to SSI in anticipation of steroid induced hyperglycemia to aggressive treat the covid-19 PNA. Physical Examination General: NAD Eyes: EOMI, anicteric, no injection ENT: Atraumatic Neck: Supple, no JVD Chest: Scattered rhonchi, otherwise some diminished air movement without aminta crackles or wheezing Heart: RRR, no mrg Abdomen: Normal bowel sounds, soft, NTND Extremities: WWP, no LE edema Neuro: Clear speech, Strength at 5/5 X4 ext, CN 3-12 intact Psych: Mental status NL, AOx3 : with severe erythema in groin folds Labs: Reviewed. See below for details Imaging: The lung cartagena demonstrate patchy bilateral airspace disease primarily along the periphery of the left lower lobe and in the right base Assessment: 69 yo M with past history of GPA, GERD, coronary artery diseases presented to the hospital with shortness of breath and admitte for Covid 19 PNA and hypoxemic respiratory failure. Plan: Covid-19 Pneumonia: -Labs according to Covid protocol -Day #2 of Remdesevir -Day #1 of dexamethasone. Because of the worsening hypoxemia, I discussed at length his GPA history with Dr. Washington (PCP) per patient's requested and we agreed that it was inidicated to reduce his mycophenolate dose to 500mg BID and start dexamethasone at this time while switching him from his oral antihyperglycemics to SSI in anticipation of steroid induced hyperglycemia to aggressive treat the covid-19 PNA. -continue mdi's -incentive spirometry -supplemental O2 to goal >92% -continue empiric CFX/doxy, and send sputum if expectorated Hypoxemic respiratory failure 2/2 covid-19 PNA: -supplemental O2 to goal >92% -treatment for covid-19 PNA per above History of Rosalba's granulomatosis -reduced dose mycophenolate to 500mg BID per recommendation of pulm (Dr. Issa) and discussion with Dr. [place] Diabetes mellitus -Insulin sliding scale -Diabetes diet -DC glimepiride and metformin. -Hypoglycemia protocol Farzana brock fungal infection -nystatin cream TID DVT ppx: lovenox once daily Dispo: 4 main VS,Fishbone, I+O VS, Fishbone, I+O Laboratory Tests 03/18/20 08:05 Vital Signs Date Time Temp Pulse Resp B/P (MAP) Pulse Ox O2 Delivery O2 Flow Rate FiO2 03/18/20 06:00 96.8 69 15 133/63 (86) 95 Nasal Cannula 5.0 I&O- Last 24 Hours up to 6 AM 03/18/20 06:00 Intake Total 2250 ml Output Total 2500 ml Balance -250 ml SAÚL ALEXANDRA MD Mar 18, 2020 09:27
[2020-03-18 16:00] VITALS: BP 125/66
[2020-03-18 20:21] VITALS: BP 128/71
[2020-03-18] MEDS: ASPIRIN 81 MG ENTERIC TAB PO SCH (21:48)
[2020-03-18] MEDS: METOPROLOL SUCC *XL* 25MG TAB (TopROL *XL*) PO SCH (21:48)
[2020-03-18] MEDS: SIMVASTATIN 40 MG TAB PO SCH (21:49)
[2020-03-18] MEDS: SODIUM CHLORIDE NASAL 0.65% SPRAY BTL (OCEAN) SCH (21:49)
[2020-03-19] MEDS: REMDESIVIR 100 MG in NS 250 ML IV SCH (01:35)
[2020-03-19] MEDS: SODIUM CHLORIDE 0.9% INJ 10 ML SYR IV SCH (02:45)
[2020-03-19] MEDS: DOXYCYCLINE HYCLATE 100 MG in D5W MINI-BAG PLUS 100 ML IV SCH ×2 (02:46→12:54)
[2020-03-19 05:00] VITALS: BP 131/85
[2020-03-19 05:11] LABS: BASO % 0.3 % (0.0-1.0); HEMATOCRIT 36.8 % (42.0-52.0); HEMOGLOBIN 11.6 g/dl (13.5-17.5); LYMPH # 0.6 10^3/uL (1.5-5.0); LYMPH % 18.5 % (24.0-44.0); MEAN CORPUSCULAR HEMOGLOBIN 26.9 pg (27.0-33.0); MEAN CORPUSCULAR HGB CONC 31.5 g/dl (32.0-36.5); MEAN CORPUSCULAR VOLUME 85.4 fl (80.0-96.0); MONO # 0.5 10^3/uL (0.0-0.8); MONO % 14.2 % (0.0-5.0); NEUTROPHILS # 2.1 10^3/uL (1.5-8.5); NEUTROPHILS % 65.5 % (36.0-66.0); PLATELET COUNT, AUTOMATED 203 10^3/uL (150-450); RED BLOOD COUNT 4.31 10^6/uL (4.30-6.10); WHITE BLOOD COUNT 3.2 10^3/uL (4.0-10.0)
[2020-03-19 05:26] LABS: INR 1.17; PROTHROMBIN TIME 15.2 SECONDS (12.5-14.3)
[2020-03-19 05:28] LABS: PARTIAL THROMBOPLASTIN TIME 35.1 SECONDS (24.2-38.5)
[2020-03-19 05:31] LABS: D-DIMER QUANT 1065.76 ng/ml (<500)
[2020-03-19 05:48] LABS: ALBUMIN 2.7 GM/DL (3.2-5.2); ALT/SGPT 23 U/L (12-78); BILIRUBIN,DIRECT 0.2 MG/DL (0.0-0.2); BILIRUBIN,TOTAL 0.4 MG/DL (0.2-1.0); BLOOD UREA NITROGEN 20 MG/DL (7-18); CALCIUM LEVEL 8.1 MG/DL (8.8-10.2); CARBON DIOXIDE LEVEL 25 MEQ/L (21-32); CHLORIDE LEVEL 102 MEQ/L (98-107); CREATININE FOR GFR 0.88 MG/DL (0.70-1.30); FERRITIN 936 NG/ML (26-388); GLOMERULAR FILTRATION RATE > 60.0 (>42); GLUCOSE, FASTING 290 MG/DL (70-100); NT-PRO BNP 368 PG/ML (<450); POTASSIUM SERUM 4.4 MEQ/L (3.5-5.1); SODIUM LEVEL 133 MEQ/L (136-145); TOTAL PROTEIN 5.6 GM/DL (6.4-8.2)
[2020-03-19 08:30] VITALS: BP 148/67
[2020-03-19] MEDS: ENOXAPARIN 40MG/0.4ML SYRINGE (J1650 PER 10MG) SC SCH ×2 (08:47→21:15)
[2020-03-19] MEDS: FERROUS SULFATE 325MG TAB PO SCH (08:47)
[2020-03-19] MEDS: MYCOPHENOLATE MOFETIL 250 MG CAP (J7517) PO SCH ×2 (08:47→21:15)
[2020-03-19] MEDS: DOCUSATE SODIUM 100MG CAPSULE PO SCH ×2 (08:47→21:13)
[2020-03-19] MEDS: dexameTHASONE 20MG/5ML VIAL (J1100 PER 1MG) IV SCH (08:47)
[2020-03-19] MEDS: GABAPENTIN 300 MG CAP PO SCH ×2 (08:47→21:13)
[2020-03-19] MEDS: SODIUM CHLORIDE NASAL 0.65% SPRAY BTL (OCEAN) SCH ×2 (08:48→21:17)
[2020-03-19] MEDS: HumaLOG INSULIN (NovoLOG) PER UNIT SC SCH ×4 (08:48→21:16)
[2020-03-19] MEDS: NYSTATIN CREAM 15 GM TOP SCH ×3 (08:49→21:17)
[2020-03-19] MEDS: cefTRIAXone SOD 1 GM in D5W MINI-BAG PLUS 50 ML IV SCH (11:48)
[2020-03-19 15:32] VITALS: BP 142/69
--- NOTE | 2020-03-19 15:38 | IPNPDOC ---
Text Note Date of Service The patient was seen on 03/19/20. NOTE SUBJECTIVE: -On 3L NC this morning -No acute events overnight. Physical Examination General: NAD Eyes: EOMI, anicteric, no injection ENT: Atraumatic Neck: Supple, no JVD Chest: Diminished air movement without aminta crackles or wheezing, or any rhonchi this morning Heart: RRR, no mrg Abdomen: Normal bowel sounds, soft, NTND Extremities: WWP, no LE edema Neuro: Clear speech, Strength at 5/5 X4 ext, CN 3-12 intact Psych: Mental status NL, AOx3 Labs: Reviewed. See below for details Imaging: The lung cartagena demonstrate patchy bilateral airspace disease primarily along the periphery of the left lower lobe and in the right base Assessment: 69 yo M with past history of GPA, GERD, coronary artery diseases presented to the hospital with shortness of breath and admitted for Covid 19 PNA and hypoxemic respiratory failure. Plan: Covid-19 Pneumonia: -Labs according to Covid protocol -Day #3 of Remdesevir -Day #2 of dexamethasone. Started after noting worsening hypoxemia and discussion with Dr. Washington (PCP) per patient's requested and we agreed that it was reasonable to reduce his mycophenolate dose to 500mg BID and start dexamethasone. -continue mdi's -incentive spirometry -supplemental O2 to goal >92% -continue empiric CFX/doxy, and send sputum if expectorated Hypoxemic respiratory failure 2/2 covid-19 PNA: -supplemental O2 to goal >92% -treatment for covid-19 PNA per above History of Rosalba's granulomatosis -reduced dose mycophenolate to 500mg BID per recommendation of pulm (Dr. Issa) and discussion with Dr. Washington Diabetes mellitus -Insulin sliding scale -Diabetes diet -Holding glimepiride and metformin. -Hypoglycemia protocol -Adding levemir 10u QHS for hyperglycemia while on steroids Groin fols fungal infection -nystatin cream TID DVT ppx: lovenox once daily Dispo: 4 main VS,Fishbone, I+O VS, Fishbone, I+O Laboratory Tests 03/19/20 04:43 Vital Signs Date Time Temp Pulse Resp B/P (MAP) Pulse Ox O2 Delivery O2 Flow Rate FiO2 03/19/20 08:30 96.7 63 19 148/67 (94) 93 Nasal Cannula 3.0 l I&O- Last 24 Hours up to 6 AM 03/19/20 06:00 Intake Total 1840 ml Output Total 2350 ml Balance -510 ml SAÚL ALEXANDRA MD Mar 19, 2020 09:19
[2020-03-19 20:00] VITALS: BP 123/78
[2020-03-19] MEDS: SIMVASTATIN 40 MG TAB PO SCH (21:13)
[2020-03-19] MEDS: METOPROLOL SUCC *XL* 25MG TAB (TopROL *XL*) PO SCH (21:14)
[2020-03-19] MEDS: ASPIRIN 81 MG ENTERIC TAB PO SCH (21:14)
[2020-03-19] MEDS: LEVEMIR (INSULIN DETEMIR) 1 UNITS/0.01ML SC SCH (21:16)
[2020-03-20] MEDS: REMDESIVIR 100 MG in NS 250 ML IV SCH (00:11)
[2020-03-20] MEDS: DOXYCYCLINE HYCLATE 100 MG in D5W MINI-BAG PLUS 100 ML IV SCH ×2 (01:26→12:46)
[2020-03-20] MEDS: SODIUM CHLORIDE 0.9% INJ 10 ML SYR IV SCH (01:27)
[2020-03-20 04:00] VITALS: BP 140/82
[2020-03-20 08:30] VITALS: BP 158/75
[2020-03-20] MEDS: ENOXAPARIN 40MG/0.4ML SYRINGE (J1650 PER 10MG) SC SCH ×2 (08:50→21:31)
[2020-03-20] MEDS: MYCOPHENOLATE MOFETIL 250 MG CAP (J7517) PO SCH ×2 (08:50→21:30)
[2020-03-20] MEDS: DOCUSATE SODIUM 100MG CAPSULE PO SCH ×2 (08:51→21:30)
[2020-03-20] MEDS: SODIUM CHLORIDE NASAL 0.65% SPRAY BTL (OCEAN) SCH ×2 (08:51→21:31)
[2020-03-20] MEDS: FERROUS SULFATE 325MG TAB PO SCH (08:51)
[2020-03-20] MEDS: dexameTHASONE 20MG/5ML VIAL (J1100 PER 1MG) IV SCH (08:51)
[2020-03-20] MEDS: GABAPENTIN 300 MG CAP PO SCH ×2 (08:51→21:30)
[2020-03-20] MEDS: NYSTATIN CREAM 15 GM TOP SCH ×3 (08:52→21:32)
[2020-03-20 08:57] LABS: BASO % 0.3 % (0.0-1.0); HEMATOCRIT 37.1 % (42.0-52.0); HEMOGLOBIN 11.9 g/dl (13.5-17.5); LYMPH # 1.2 10^3/uL (1.5-5.0); LYMPH % 16.8 % (24.0-44.0); MEAN CORPUSCULAR HEMOGLOBIN 26.9 pg (27.0-33.0); MEAN CORPUSCULAR HGB CONC 32.1 g/dl (32.0-36.5); MEAN CORPUSCULAR VOLUME 83.9 fl (80.0-96.0); MONO # 0.7 10^3/uL (0.0-0.8); MONO % 9.2 % (0.0-5.0); NEUTROPHILS # 5.3 10^3/uL (1.5-8.5); NEUTROPHILS % 72.2 % (36.0-66.0); PLATELET COUNT, AUTOMATED 275 10^3/uL (150-450); RED BLOOD COUNT 4.42 10^6/uL (4.30-6.10); WHITE BLOOD COUNT 7.4 10^3/uL (4.0-10.0)
[2020-03-20 09:17] LABS: INR 1.12; PARTIAL THROMBOPLASTIN TIME 30.6 SECONDS (24.2-38.5); PROTHROMBIN TIME 14.6 SECONDS (12.5-14.3)
[2020-03-20] MEDS: BACTRIM 160MG/800MG DS TAB PO SCH (09:18)
[2020-03-20] MEDS: HumaLOG INSULIN (NovoLOG) PER UNIT SC SCH ×4 (09:19→21:31)
[2020-03-20 09:20] LABS: D-DIMER QUANT 1233.27 ng/ml (<500)
[2020-03-20 09:37] LABS: ALBUMIN 2.9 GM/DL (3.2-5.2); ALT/SGPT 29 U/L (12-78); BILIRUBIN,DIRECT 0.1 MG/DL (0.0-0.2); BILIRUBIN,TOTAL 0.4 MG/DL (0.2-1.0); BLOOD UREA NITROGEN 23 MG/DL (7-18); C REACTIVE PROTEIN QUANTITATIV 6.66 MG/DL (0.00-0.30); CALCIUM LEVEL 8.5 MG/DL (8.8-10.2); CARBON DIOXIDE LEVEL 27 MEQ/L (21-32); CHLORIDE LEVEL 103 MEQ/L (98-107); CREATININE FOR GFR 0.84 MG/DL (0.70-1.30); FERRITIN 970 NG/ML (26-388); GLOMERULAR FILTRATION RATE > 60.0 (>42); GLUCOSE, FASTING 185 MG/DL (70-100); NT-PRO BNP 410 PG/ML (<450); POTASSIUM SERUM 4.2 MEQ/L (3.5-5.1); SODIUM LEVEL 137 MEQ/L (136-145); TOTAL PROTEIN 5.7 GM/DL (6.4-8.2)
[2020-03-20] MEDS: cefTRIAXone SOD 1 GM in D5W MINI-BAG PLUS 50 ML IV SCH (12:02)
[2020-03-20 16:00] VITALS: BP 140/66
--- NOTE | 2020-03-20 17:52 | IPNPDOC ---
Date Seen The patient was seen on 03/20/20. Progress Note SUBJECTIVE: Shen was seen and examined at the bedside this morning. He reports that he was unable to sleep all night because the other patient that shares his room was loud and giving the nurses a difficult time. He requests to have the other patient switched rooms. He denies any shortness of breath, no cough, no nausea/vomiting, and no diarrhea. OBJECTIVE PHYSICAL EXAMINATION: VITAL SIGNS: see below GENERAL: alert and oriented, in no apparent distress, pleasant and conversant in full sentences. HEENT: PERRL, EOMI, Oral mucous membranes are moist without lesions. NECK: The patient has no noted JVD. No adenopathy is appreciated. No thyromegaly CHEST/LUNGS: There are decreased breath sounds bilaterally with some scattered wheezes bilaterally HEART:Regular rate and rhythm. No murmurs, rubs, or gallops are appreciated. Distal pulses are 2+. No carotid bruits appreciated. ABDOMEN: Soft, nontender, and nondistended. Bowel sounds are positive. No organomegaly is appreciated. No masses are appreciated. There are no peritoneal signs. There is no [place] sign. EXTREMITIES: No peripheral edema. There is no focal long bone tenderness or deformity. SKIN: The patients skin is warm and dry, without rashes or lesions. PSYCHIATRIC: AAO x 3, normal mood/affect NEUROLOGIC: The patient has 5/5 strength to the upper and lower extremities bilaterally. Sensation is intact throughout. Deep tendon reflexes are 2+ in all four extremities. There are no deficits to the cranial nerves. LABORATORY DATA, IMAGING STUDIES, MICROBIOLOGY: Please see below. Echocardiogram: none ASSESSMENT AND PLAN: This is a 69-year-old male with history of GPA, CAD who presented to the hospital with shortness of breath and subjective fevers found to have hypoxemic respiratory failure likely secondary to Covid 19 pneumonia PROBLEMS: 1. Hypoxemic respiratory failure likely secondary to Covid 19 pneumonia: -Inflammatory markers: Ferritin increased to 970, CRP decreased to 6.66, pro calcitonin remains at less than 0.05, d-dimer increased to 1233, fibrinogen decreased to 637 -Continue Remdesivir, day #4 -Continue dexamethasone, day #2 -Encourage incentive spirometry -Continue Combivent inhaler every 4 hours as needed for shortness of breath 2. ? Superimposed bacterial community-acquired pneumonia: -Continue empiric ceftriaxone and doxycycline, day 4 3. History of GPA: -CellCept dose decreased to 500 mg twice a day. Will advise patient follow-up with rheumatology upon discharge 4. Type 2 diabetes on insulin: -Continue Levemir 10 units daily at bedtime -Sliding-scale insulin with hypoglycemic protocol -Continue gabapentin 5. Hyperlipidemia: -Continue Zocor 6. History of CAD: -Continue aspirin DVT prophylaxis ordered?: Lovenox 40 units twice a day DISPOSITION: Pending improvement in oxygenation, likely discharge tomorrow VS, I&O, 24H, [facility] Vital Signs/I&O Vital Signs Date Time Temp Pulse Resp B/P (MAP) Pulse Ox O2 Delivery O2 Flow Rate FiO2 03/20/20 16:00 95.1 60 18 140/66 (90) 93 Nasal Cannula 2.0 03/19/20 21:00 50 I&O- Last 24 Hours up to 6 AM 03/20/20 06:00 Intake Total 1240 ml Output Total 2050 ml Balance -810 ml Laboratory Data 24H LABS Laboratory Tests 2 03/20/20 08:32: Immature Granulocyte % (Auto) 1.5, Neutrophils (%) (Auto) 72.2H, Lymphocytes (%) (Auto) 16.8L, Monocytes (%) (Auto) 9.2H, Eosinophils (%) (Auto) 0.0, Basophils (%) (Auto) 0.3, Neutrophils # (Auto) 5.3, Lymphocytes # (Auto) 1.2L, Monocytes # (Auto) 0.7, Eosinophils # (Auto) 0.0, Basophils # (Auto) 0.0, Nucleated Red Blood Cells % (auto) 0.0, Prothrombin Time 14.6H, Prothromb Time International Ratio 1.12, Activated Partial Thromboplast Time 30.6, Fibrinogen 637H, D-Dimer, Quantitative 1233.27H, Anion Gap 7L, Glomerular Filtration Rate > 60.0, Calcium Level 8.5L, Ferritin 970H, Total Bilirubin 0.4, Direct Bilirubin 0.1, Aspartate Amino Transf (AST/SGOT) 28, Alanine Aminotransferase (ALT/SGPT) 29, Alkaline Phosphatase 77, C-Reactive Protein, Quantitative 6.66H, [place]-Lox-R-Type Natriuretic Peptide 410, Total Protein 5.7L, Albumin 2.9L, Albumin/Globulin Ratio 1.0, Procalcitonin <0.05 1/11/21 12:01: Bedside Glucose (Misc Panel) 377H CBC/BMP Laboratory Tests 03/20/20 08:32 Microbiology Microbiology 03/17/20 Gram Stain - Final, Complete 03/17/20 Sputum Culture - Final, Complete 03/16/20 Blood Culture - Preliminary, Resulted No Growth after 72 hours. All specime... 03/16/20 Blood Culture - Preliminary, Resulted No Growth after 72 hours. All specime... GME ATTESTATION GME ATTESTATION My faculty preceptor for this patient encounter was physically present during the encounter and was fully available. All aspects of the patient interview, examination, medical decision making process, and medical care plan development were reviewed and approved by the faculty preceptor. The faculty preceptor is aware and concurs with the plan as stated in the body of this note and will attest to such by his/her cosignature. RA CASTILLO MD Mar 20, 2020 17:52
[2020-03-20 21:30] VITALS: BP 140/66
[2020-03-20] MEDS: SIMVASTATIN 40 MG TAB PO SCH (21:30)
[2020-03-20] MEDS: ASPIRIN 81 MG ENTERIC TAB PO SCH (21:30)
[2020-03-20] MEDS: METOPROLOL SUCC *XL* 25MG TAB (TopROL *XL*) PO SCH (21:30)
[2020-03-20] MEDS: LEVEMIR (INSULIN DETEMIR) 1 UNITS/0.01ML SC SCH (21:31)
[2020-03-20 22:00] VITALS: BP 117/59
[2020-03-21] MEDS: DOXYCYCLINE HYCLATE 100 MG in D5W MINI-BAG PLUS 100 ML IV SCH (01:31)
[2020-03-21 05:40] VITALS: BP 103/56
[2020-03-21 07:41] LABS: HEMATOCRIT 37.2 % (42.0-52.0); HEMOGLOBIN 11.9 g/dl (13.5-17.5); MEAN CORPUSCULAR HEMOGLOBIN 26.9 pg (27.0-33.0); MEAN CORPUSCULAR VOLUME 84.2 fl (80.0-96.0); PLATELET COUNT, AUTOMATED 276 10^3/uL (150-450); RED BLOOD COUNT 4.42 10^6/uL (4.30-6.10); WHITE BLOOD COUNT 9.4 10^3/uL (4.0-10.0)
[2020-03-21 08:38] LABS: BLOOD UREA NITROGEN 24 MG/DL (7-18); C REACTIVE PROTEIN QUANTITATIV 4.78 MG/DL (0.00-0.30); CALCIUM LEVEL 8.4 MG/DL (8.8-10.2); CARBON DIOXIDE LEVEL 27 MEQ/L (21-32); CHLORIDE LEVEL 102 MEQ/L (98-107); CREATININE FOR GFR 0.89 MG/DL (0.70-1.30); FERRITIN 895 NG/ML (26-388); GLOMERULAR FILTRATION RATE > 60.0 (>42); GLUCOSE, FASTING 134 MG/DL (70-100); POTASSIUM SERUM 4.4 MEQ/L (3.5-5.1); SODIUM LEVEL 136 MEQ/L (136-145)
[2020-03-21] MEDS ORDERED: CEFDINIR 300 MG CAP (OMNICEF) PO SCH (09:00)
[2020-03-21] MEDS ORDERED: DOXYCYCLINE HYCLATE 100MG TABLET PO SCH (09:00)
[2020-03-21] MEDS: HumaLOG INSULIN (NovoLOG) PER UNIT SC SCH ×2 (09:02→12:59)
[2020-03-21] MEDS: ENOXAPARIN 40MG/0.4ML SYRINGE (J1650 PER 10MG) SC SCH (09:02)
[2020-03-21] MEDS: MYCOPHENOLATE MOFETIL 250 MG CAP (J7517) PO SCH (09:03)
[2020-03-21] MEDS: FERROUS SULFATE 325MG TAB PO SCH (09:03)
[2020-03-21] MEDS: dexameTHASONE 20MG/5ML VIAL (J1100 PER 1MG) IV SCH (09:03)
[2020-03-21] MEDS: DOCUSATE SODIUM 100MG CAPSULE PO SCH (09:03)
[2020-03-21] MEDS: GABAPENTIN 300 MG CAP PO SCH (09:04)
[2020-03-21] MEDS: SODIUM CHLORIDE NASAL 0.65% SPRAY BTL (OCEAN) SCH (09:05)
[2020-03-21] MEDS: NYSTATIN CREAM 15 GM TOP SCH ×2 (09:05→16:00)
[2020-03-21 12:00] VITALS: BP 112/66
[2020-03-21 14:00] VITALS: BP 92/50
[2020-03-21 14:21] VITALS: BP 118/64
[2020-03-21] MEDS ORDERED: MYCO500T PO (14:59)
[2020-03-21] MEDS ORDERED: DOXY100T PO (14:59)
[2020-03-21] MEDS ORDERED: CEFD300CAP PO (14:59)
--- NOTE | 2020-03-21 16:13 | DS.PDOC ---
Discharge Summary General Date of Admission Mar 15, 2020 at 17:50 Date of Discharge March 21, 2020 Primary Care Physician: Rashawn Parish MD Attending Physician: ALICIA GALINDO MD Discharge Summary PROCEDURES PERFORMED DURING STAY: [None]. ADMITTING DIAGNOSES: 1. Acute hypoxic respiratory failure 2/2 COVID19 PNA DISCHARGE DIAGNOSES: 1. Acute hypoxic respiratory failure 2/2 COVID19 PNA COMPLICATIONS/CHIEF COMPLAINT: Hypoxia/Pneumonia Due To Covid 19. HISTORY OF PRESENT ILLNESS: 69 years old male with past history of GPA, GERD, coronary artery diseases presented to the hospital with shortness of breath. Patient stated that for past few days he has been having increased cough and shortness of breath. In ER patient was tested positive for Covid 19. Chest x-ray showed The lung [place] demonstrate patchy bilateral airspace disease primarily along the periphery of the left lower lobe and in the right base. No obvious effusion. D-dimer 1200. HOSPITAL COURSE: The patient was admitted with acute hypoxic respiratory failure secondary to Covid 19 pneumonia. His inflammatory markers, including fibrinogen, d-dimer, CRP, LDH were initially elevated but eventually trended down. He was started on Remdesivir, dexamethasone and his CellCept was decreased by one half due to the severity of his infection. In addition, he was started on doxycycline and ceftriaxone for dual coverage including community-acquired pneumonia coverage. He remained on 2 L of oxygen throughout his stay, with some fluctuation recorded as increased to 3 L. He cleared his physical therapy and occupational therapy evaluations, who recommended home with services. On hospital day 7, the patient was discharged home with a prescription for 2 L of oxygen and set up with home health services. He was instructed to continue taking his CellCept at 500 mg twice daily for another 14 days and subsequently returned to his original dose of 1000 mg twice daily, but at the discretion of his primary care physician. DISCHARGE MEDICATIONS: Please see below. ALLERGIES: Please see below. PHYSICAL EXAMINATION ON DISCHARGE: VITAL SIGNS: see below GENERAL: alert and oriented, in no apparent distress, pleasant and conversant in full sentences. HEENT: PERRL, EOMI, Oral mucous membranes are moist without lesions. NECK: The patient has no noted JVD. No adenopathy is appreciated. No thyromegaly CHEST/LUNGS: There are decreased breath sounds bilaterally with some scattered wheezes bilaterally HEART:Regular rate and rhythm. No murmurs, rubs, or gallops are appreciated. Distal pulses are 2+. No carotid bruits appreciated. ABDOMEN: Soft, nontender, and nondistended. Bowel sounds are positive. No organomegaly is appreciated. No masses are appreciated. There are no peritoneal signs. There is no Brewer sign. EXTREMITIES: No peripheral edema. There is no focal long bone tenderness or deformity. SKIN: The patients skin is warm and dry, without rashes or lesions. PSYCHIATRIC: AAO x 3, normal mood/affect NEUROLOGIC: The patient has 5/5 strength to the upper and lower extremities bilaterally. Sensation is intact throughout. Deep tendon reflexes are 2+ in all four extremities. There are no deficits to the cranial nerves. LABORATORY DATA: Please see below. IMAGING: CXR: FINDINGS: The mediastinum and cardiac silhouette are stable and within normal limits for portable technique. [id number] with tip in the SVC remains stable. The lung [place] demonstrate patchy bilateral airspace disease primarily along the periphery of the left lower lobe and in the right base. No obvious effusion. No pneumothorax. IMPRESSION: Chronic changes with superimposed infiltrates PROGNOSIS: Fair ACTIVITY: [As tolerated]. DIET: Consistent carbohydrate DISCHARGE PLAN: Home with home health services DISPOSITION: . DISCHARGE INSTRUCTIONS: 1. Follow-up with PCP within 14 days 2. Remain compliant with treatment plan and medications 3. Return to the ER if you experience any problems ITEMS TO FOLLOWUP ON ON OUTPATIENT: 1. None DISCHARGE CONDITION: [Stable]. TIME SPENT ON DISCHARGE: 40 minutes. Vital Signs/I&Os Vital Signs Date Time Temp Pulse Resp B/P (MAP) Pulse Ox O2 Delivery O2 Flow Rate FiO2 03/21/20 14:21 78 118/64 (82) 03/21/20 14:00 97.9 19 91 Nasal Cannula 2.0 03/19/20 21:00 I&O- Last 24 Hours up to 6 AM 03/21/20 06:00 Intake Total 810 ml Output Total 1625 ml Balance -815 ml Laboratory Data Labs 24H Laboratory Tests 2 03/20/20 17:00: Bedside Glucose (Misc Panel) 377H 03/20/20 21:25: Bedside Glucose (Misc Panel) 358H 03/21/20 05:29: Bedside Glucose (Misc Panel) 156H 03/21/20 06:42: Nucleated Red Blood Cells % (auto) 0.0, D-Dimer, Quantitative 986.06H, Anion Gap 7L, Glomerular Filtration Rate > 60.0, Calcium Level 8.4L, Ferritin 895H, C-Reactive Protein, Quantitative 4.78H, Procalcitonin <0.05 03/21/20 12:07: Bedside Glucose (Misc Panel) 415H CBC/BMP Laboratory Tests 03/21/20 06:42 FSBS Laboratory Tests Test 03/20/20 17:00 03/20/20 21:25 03/21/20 05:29 03/21/20 12:07 Range/Units Bedside Glucose (Misc Panel) 377 358 156 415 83-110 MG/DL Microbiology Microbiology 03/17/20 Gram Stain - Final, Complete 03/17/20 Sputum Culture - Final, Complete 03/16/20 Blood Culture - Final, Complete NO GROWTH AFTER 5 DAYS 03/16/20 Blood Culture - Final, Complete NO GROWTH AFTER 5 DAYS Discharge Medications Scheduled Aspirin (Aspirin EC) 81 Mg Tab, 81 MG PO DAILY, (Reported) Cefdinir (Cefdinir) 300 Mg Capsule, 300 MG PO BID Doxycycline Hyclate (Doxycycline Hyclate) 100 Mg Tablet, 100 MG PO BID Gabapentin (Gabapentin) 600 Mg Tab, 600 MG PO BID, (Reported) Metformin HCl (Metformin HCl) 500 Mg Tablet, 500 MG PO DAILY, (Reported) QD FOR ONE WEEK, THEN BID PER DR. PARISH Metoprolol Succinate (Metoprolol Succinate) 25 Mg Tab, 25 MG PO QHS, (Reported) Mycophenolate Mofetil (Mycophenolate Mofetil) 500 Mg Tab, 1,000 MG PO BID Continue taking 500 twice daily for 14 more days until 04/04/20, then on 04/05/20 increase to 1,000mg twice daily indefinitely Simvastatin (Simvastatin) 40 Mg Tablet, 40 MG PO QHS, (Reported) Sulfamethoxazole/Trimethoprim (Bactrim Ds Tablet) 1 Each Tablet, 1 TAB PO 3XW, (Reported) TAKES MWF Miscellaneous Medications Glimepiride (Glimepiride) 2 Mg Tablet, 2 MG PO, (Reported) Allergies Coded Allergies: nitroglycerin (Verified Adverse Reaction, Mild, SEVERE HYPOTENSION, 03/15/20) tramadol (Verified Adverse Reaction, Mild, LIGHT-HEADED, DEPRESSION, 03/15/20) GME ATTESTATION GME ATTESTATION My faculty preceptor for this patient encounter was physically present during the encounter and was fully available. All aspects of the patient interview, examination, medical decision making process, and medical care plan development were reviewed and approved by the faculty preceptor. The faculty preceptor is aware and concurs with the plan as stated in the body of this note and will attest to such by his/her cosignature. ATTENDING NOTE I, Alicia Galindo, have independently examined this patient and performed my own physical exam, as well as reviewed the documentation and edited where necessary. I have discussed in detail with the resident / student the findings and plan of treatment as documented by the resident / student and edited their note. I agree with their findings and treatment plan and have edited their documentation. I will continue to follow the patient during this hospital stay. Time spent on discharge 37 minutes RA CASTILLO MD Mar 21, 2020 16:13 ALICIA GALINDO MD Mar 21, 2020 16:27
== END 2020-03-21 17:10 | disposition home or self-care (01) | DRG 177 ==
LOC: EDBD 12:34 → M ED 12:34 → M ED INP 17:50 → M 4MAIN 23:23
PROVIDERS: ADMIT Internal Medicine; ATTEND Internal Medicine
PROC: XW033E5 Introduction of Remdesivir Anti-infective into Peripheral Vein, Percutaneous Approach, New Technology Group 5 (ICD-10-PCS; principal; 2020-03-15)
PROC: 3E0333Z Introduction of Anti-inflammatory into Peripheral Vein, Percutaneous Approach (ICD-10-PCS; 2020-03-15)
DX: U07.1 COVID-19 (principal); J12.89 Other viral pneumonia; J96.01 Acute respiratory failure with hypoxia; M31.30 Wegener's granulomatosis without renal involvement; K21.9 Gastro-esophageal reflux disease without esophagitis; I25.10 Atherosclerotic heart disease of native coronary artery without angina pectoris; E11.9 Type 2 diabetes mellitus without complications; B35.6 Tinea cruris; J44.9 Chronic obstructive pulmonary disease, unspecified; Z79.82 Long term (current) use of aspirin; Z79.84 Long term (current) use of oral hypoglycemic drugs; Z79.899 Other long term (current) drug therapy; Z86.718 Personal history of other venous thrombosis and embolism; Z88.5 Allergy status to narcotic agent; Z88.8 Allergy status to other drugs, medicaments and biological substances; Z87.891 Personal history of nicotine dependence; Z96.662 Presence of left artificial ankle joint

== ENCOUNTER 2020-07-17 09:36 | Day surgery (SDC) | payer MEDICARE, BC ==
[~2020-07-17] VITALS: Ht 182.9 cm; Wt 104.5 kg
[~2020-07-17 09:36] MED LIST changes: +BACT800T5 PO; +CEFD300CAP PO; +DOXY100T PO; +GLIM2TAB4 PO; +METF500T13 PO; +SIMV40TA20 PO
[2020-07-17] MEDS ORDERED: ELIQ5TAB PO (09:55)
[2020-07-17] MEDS ORDERED: GLUCAGON INJ 1MG VIAL IV STA (10:00)
[2020-07-17 10:19] LABS: BASO % 0.6 % (0.0-1.0); EOS # 0.1 10^3/uL (0.0-0.5); EOS % 1.8 % (0.0-3.0); HEMATOCRIT 42.7 % (42.0-52.0); HEMOGLOBIN 13.2 g/dl (13.5-17.5); LYMPH # 1.1 10^3/uL (1.5-5.0); LYMPH % 16.6 % (24.0-44.0); MEAN CORPUSCULAR HGB CONC 30.9 g/dl (32.0-36.5); MEAN CORPUSCULAR VOLUME 84.1 fl (80.0-96.0); MONO # 0.8 10^3/uL (0.0-0.8); MONO % 11.6 % (2.0-8.0); NEUTROPHILS # 4.5 10^3/uL (1.5-8.5); NEUTROPHILS % 68.8 % (36.0-66.0); PLATELET COUNT, AUTOMATED 200 10^3/uL (150-450); RED BLOOD COUNT 5.08 10^6/uL (4.30-6.10); WHITE BLOOD COUNT 6.6 10^3/uL (4.0-10.0)
[2020-07-17 10:51] LABS: ALBUMIN 4.1 GM/DL (3.2-5.2); BILIRUBIN,DIRECT 0.1 MG/DL (0.0-0.2); BILIRUBIN,TOTAL 0.4 MG/DL (0.2-1.0); TOTAL PROTEIN 7.1 GM/DL (6.4-8.2)
[2020-07-17] MEDS ORDERED: MYCO500T PO (11:08)
[2020-07-17] MEDS ORDERED: GABA-282 PO (11:08)
[2020-07-17] MEDS ORDERED: BACTDSTA PO (11:08)
[2020-07-17 11:40] LABS: RSV AMPLIFICATION NEGATIVE (NEGATIVE)
[2020-07-17] MEDS ORDERED: propofoL 200 MG/20 ML VIAL As Ordered ONE (12:51)
[2020-07-17] MEDS ORDERED: MIDAZOLAM INJ 2MG/2ML VIAL (J2250 PER 1MG) As Ordered ONE (12:51)
[2020-07-17] MEDS ORDERED: LIDOCAINE 2% 100MG/5ML SDV (FOR ANES.) As Ordered ONE (12:52)
[2020-07-17] MEDS ORDERED: fentaNYL 100 MCG/2 ML INJECTION (J3010) As Ordered ONE (12:52)
[2020-07-17] MEDS ORDERED: ONDANSETRON 4MG/2ML VIAL As Ordered ONE (12:52)
[2020-07-17] MEDS ORDERED: dexameTHASONE 4 MG/ML 1ML VIAL (J1100 PER 1MG) As Ordered ONE (12:52)
[2020-07-17] MEDS ORDERED: ROCURONIUM BROMIDE 50 MG/5 ML VIAL As Ordered ONE (13:05)
[2020-07-17] MEDS ORDERED: SUGAMMADEX SODIUM 500 MG/5 ML VIAL (BRIDION) As Ordered ONE (13:31)
[2020-07-17] MEDS ORDERED: LR 1,000 ML IV SCH (13:55)
[2020-07-17 14:55] VITALS: BP 170/77
--- NOTE | 2020-07-24 09:07 | RO ---
OPERATIVE NOTE DATE OF OPERATION: 07/17/2020 PREOPERATIVE DIAGNOSIS: Esophageal foreign body. POSTOPERATIVE DIAGNOSIS: Esophageal foreign body. PROCEDURE: Upper endoscopy (EGD) with removal of esophageal foreign body. SURGEON: Michael Izquierdo Jr, MD RESIDENT CARE COORDINATOR: ANESTHESIA: IV sedation. EBL: Minimal. FLUIDS: Crystalloid. DESCRIPTION OF PROCEDURE: The patient was brought to the operating room and was given anesthesia, was placed in left lateral decubitus position and gastroscope was inserted into the posterior oropharynx, down into the esophagus without difficulty. There was some meat that was present in the esophagus. I was able to gently push this through the GE junction and then flush the rest of the particles and meat into the stomach itself. Scope was inserted into the stomach itself and revealed no other significant abnormalities within the stomach. The bulb of the duodenum appeared normal as well as the postbulbar duodenum was normal appearing. The scope was brought back into the stomach, retroflexed, revealed no other significant abnormalities at the GE junction and the scope was gradually removed. It did reveal some mild erythema at the GE junction, was probably secondary to the food bolus that was present but otherwise no other significant abnormality was appreciated on removal of the scope. The patient was brought to the recovery room awake, alert, hemodynamically stable.
== END 2020-07-17 15:05 | disposition home or self-care (01) ==
LOC: M ED 09:36 → EDBD 09:36 → M SDC 11:45
PROVIDERS: ATTEND Surgery
DX: T18.128A Food in esophagus causing other injury, initial encounter (principal); Y92.89 Other specified places as the place of occurrence of the external cause; E11.9 Type 2 diabetes mellitus without complications; J44.9 Chronic obstructive pulmonary disease, unspecified; K21.9 Gastro-esophageal reflux disease without esophagitis; M54.9 Dorsalgia, unspecified; Z88.8 Allergy status to other drugs, medicaments and biological substances; Z88.5 Allergy status to narcotic agent; Z79.82 Long term (current) use of aspirin
CPT/HCPCS: 43247; 80047; 80076; 85025; 87631; 96374; 99285; J1100; J1610; J2250; J2405; J3010

== ENCOUNTER → 2020-09-04 | Outpatient (REF) | payer MEDICARE, BC ==
[~2020-09-04] MED LIST changes: +BACTDSTA PO; +ELIQ5TAB PO; +GABA-282 PO
[2020-09-04 11:48] LABS: BASO # 0.1 10^3/uL (0.0-0.2); BASO % 0.8 % (0.0-1.0); EOS # 0.1 10^3/uL (0.0-0.5); LYMPH # 1.3 10^3/uL (1.5-5.0); LYMPH % 21.7 % (24.0-44.0); MEAN CORPUSCULAR HEMOGLOBIN 25.6 pg (27.0-33.0); MEAN CORPUSCULAR VOLUME 82.7 fl (80.0-96.0); MONO # 0.7 10^3/uL (0.0-0.8); MONO % 11.5 % (2.0-8.0); NEUTROPHILS # 3.8 10^3/uL (1.5-8.5); PLATELET COUNT, AUTOMATED 199 10^3/uL (150-450); RED BLOOD COUNT 5.08 10^6/uL (4.30-6.10)
[2020-09-04 12:10] LABS: ERYTHROCYTE SEDIMENTATION RATE 10 mm/hr (0-20)
[2020-09-04 12:24] LABS: ALT/SGPT 19 U/L (12-78); BILIRUBIN,TOTAL 0.6 MG/DL (0.2-1.0); BLOOD UREA NITROGEN 25 MG/DL (7-18); C REACTIVE PROTEIN QUANTITATIV 1.55 MG/DL (0.00-0.30); CALCIUM LEVEL 9.3 MG/DL (8.8-10.2); CARBON DIOXIDE LEVEL 29 MEQ/L (21-32); CHLORIDE LEVEL 101 MEQ/L (98-107); CHOLESTEROL LEVEL 228 MG/DL (<200); CREATININE FOR GFR 0.87 MG/DL (0.70-1.30); GLOMERULAR FILTRATION RATE > 60.0 (>42); GLUCOSE, FASTING 161 MG/DL (70-100); HDL CHOLESTEROL 41 MG/DL (>40); LDL CHOLESTEROL 162 MG/DL (<100); NON-HDL-C 187 MG/DL; POTASSIUM SERUM 4.5 MEQ/L (3.5-5.1); SODIUM LEVEL 138 MEQ/L (136-145); TOTAL PROTEIN 6.9 GM/DL (6.4-8.2); TRIGLYCERIDES LEVEL 127 MG/DL (<150)
== END ==
LOC: M LABDRAWC 11:16
PROVIDERS: ATTEND Internal Medicine Rheumatology
DX: M31.31 Wegener's granulomatosis with renal involvement (principal); Z79.899 Other long term (current) drug therapy; M13.0 Polyarthritis, unspecified

== ENCOUNTER → 2020-11-06 | Outpatient (REF) | payer MEDICARE, BC ==
[2020-11-06 12:57] LABS: BASO # 0.1 10^3/uL (0.0-0.2); BASO % 0.9 % (0.0-1.0); EOS # 0.1 10^3/uL (0.0-0.5); EOS % 2.2 % (0.0-3.0); HEMATOCRIT 31.4 % (42.0-52.0); HEMOGLOBIN 9.7 g/dl (13.5-17.5); LYMPH # 1.3 10^3/uL (1.5-5.0); LYMPH % 20.8 % (24.0-44.0); MEAN CORPUSCULAR HGB CONC 30.9 g/dl (32.0-36.5); MEAN CORPUSCULAR VOLUME 87.5 fl (80.0-96.0); MONO # 0.6 10^3/uL (0.0-0.8); MONO % 9.5 % (2.0-8.0); NEUTROPHILS # 4.3 10^3/uL (1.5-8.5); NEUTROPHILS % 65.8 % (36.0-66.0); PLATELET COUNT, AUTOMATED 198 10^3/uL (150-450); RED BLOOD COUNT 3.59 10^6/uL (4.30-6.10); WHITE BLOOD COUNT 6.5 10^3/uL (4.0-10.0)
[2020-11-06 13:18] LABS: HEMOGLOBIN A1c 6.8 %
[2020-11-06 13:45] LABS: ALT/SGPT 21 U/L (12-78); BLOOD UREA NITROGEN 16 MG/DL (7-18); CALCIUM LEVEL 9.5 MG/DL (8.8-10.2); CARBON DIOXIDE LEVEL 29 MEQ/L (21-32); CHLORIDE LEVEL 106 MEQ/L (98-107); CHOLESTEROL LEVEL 130 MG/DL (<200); CHOLESTEROL RISK RATIO 2.954 (<5); CREATININE FOR GFR 0.84 MG/DL (0.70-1.30); GLOMERULAR FILTRATION RATE > 60.0 (>42); GLUCOSE, FASTING 187 MG/DL (70-100); HDL CHOLESTEROL 44 MG/DL (>40); LDL CHOLESTEROL 64 MG/DL (<100); NON-HDL-C 86 MG/DL; POTASSIUM SERUM 4.8 MEQ/L (3.5-5.1); SODIUM LEVEL 139 MEQ/L (136-145); TRIGLYCERIDES LEVEL 109 MG/DL (<150)
[2020-11-07 07:32] LABS: IRON (FE) 52 UG/DL (65-175); LDH LACTATE DEHYDROGENASE 168 U/L (87-241); PERCENT SATURATION 16.2 % (19.7-50.0); TOTAL IRON BINDING CAPACITY 321 UG/DL (250-450)
[2020-11-07 10:13] LABS: FOLATE 9.6 NG/ML (>5.4); VITAMIN B12 LEVEL 205 PG/ML (247-911)
== END ==
LOC: M SFHCCLAY 07:14
PROVIDERS: ATTEND Family Medicine
DX: E09.9 Drug or chemical induced diabetes mellitus without complications (principal); M31.31 Wegener's granulomatosis with renal involvement; E11.40 Type 2 diabetes mellitus with diabetic neuropathy, unspecified

== ENCOUNTER → 2020-11-18 | Outpatient (CLI) | payer MEDICARE, BC | LOC: M LABSMTC 09:43 | PROVIDERS: ATTEND Orthopaedic Surgery | DX: Z20.822 Contact with and (suspected) exposure to COVID-19 (principal) ==

== ENCOUNTER → 2021-03-31 | Outpatient (CLI) | payer MEDICARE, BC ==
[~2021-03-31] MED LIST changes: +FAMO40TA3 PO; +ROSU5TAB5 PO
== END ==
LOC: M LABSMTC 09:27
PROVIDERS: ATTEND Anesthesiology
DX: Z01.812 Encounter for preprocedural laboratory examination (principal); Z20.822 Contact with and (suspected) exposure to COVID-19

== ENCOUNTER 2021-04-05 07:46 | Day surgery (SDC) | payer MEDICARE, BC ==
[~2021-04-05] VITALS: Ht 182.9 cm; Wt 108.0 kg
[~2021-04-05 07:46] MED LIST changes: +NS 1,000 ML IV ONE
[2021-04-05] MEDS ORDERED: propofoL 200 MG/20 ML VIAL As Ordered ONE (08:28)
[2021-04-05] MEDS ORDERED: LIDOCAINE 2% 100MG/5ML SDV (FOR ANES.) As Ordered ONE (08:28)
[2021-04-05] MEDS ORDERED: fentaNYL 100 MCG/2 ML INJECTION (J3010) As Ordered ONE (08:28)
[2021-04-05 09:01] VITALS: BP 150/79
== END 2021-04-05 09:02 | disposition home or self-care (01) ==
LOC: M OPP 07:46
PROVIDERS: ATTEND Surgery
DX: K31.89 Other diseases of stomach and duodenum (principal); K44.9 Diaphragmatic hernia without obstruction or gangrene; R13.10 Dysphagia, unspecified; Z79.899 Other long term (current) drug therapy; Z88.5 Allergy status to narcotic agent; Z88.8 Allergy status to other drugs, medicaments and biological substances; I48.91 Unspecified atrial fibrillation; Z86.73 Personal history of transient ischemic attack (TIA), and cerebral infarction without residual deficits
CPT/HCPCS: 43239; 88305; J3010

== ENCOUNTER → 2021-08-21 | Outpatient (REF) | payer MEDICARE, BC ==
[~2021-08-21] MED LIST changes: -NS 1,000 ML IV ONE
== END ==
LOC: M SFHCCLAY 11:25
PROVIDERS: ATTEND Physician Assistant
DX: R19.7 Diarrhea, unspecified (principal)

== ENCOUNTER → 2022-02-13 | Outpatient (REF) | payer MEDICARE, BC ==
[2022-02-13 23:34] LABS: HEMOGLOBIN A1c 7.8 % (4.0-6.0)
== END ==
LOC: M SFHCCLAY 09:41
PROVIDERS: ATTEND Family Medicine
DX: E11.40 Type 2 diabetes mellitus with diabetic neuropathy, unspecified (principal)

== ENCOUNTER → 2022-08-08 | Outpatient (REF) | payer MEDICARE, BC ==
[2022-08-08 11:37] LABS: BASO # 0.1 10^3/uL (0.0-0.2); BASO % 0.8 % (0.0-1.0); EOS # 0.1 10^3/uL (0.0-0.5); EOS % 2.1 % (0.0-3.0); HEMATOCRIT 40.5 % (42.0-52.0); HEMOGLOBIN 13.1 g/dl (13.5-17.5); LYMPH # 1.4 10^3/uL (1.5-5.0); LYMPH % 23.3 % (24.0-44.0); MEAN CORPUSCULAR HEMOGLOBIN 28.4 pg (27.0-33.0); MEAN CORPUSCULAR HGB CONC 32.3 g/dl (32.0-36.5); MEAN CORPUSCULAR VOLUME 87.9 fl (80.0-96.0); MONO # 0.7 10^3/uL (0.0-0.8); MONO % 11.3 % (2.0-8.0); NEUTROPHILS # 3.8 10^3/uL (1.5-8.5); NEUTROPHILS % 61.9 % (36.0-66.0); PLATELET COUNT, AUTOMATED 191 10^3/uL (150-450); RED BLOOD COUNT 4.61 10^6/uL (4.30-6.10); WHITE BLOOD COUNT 6.2 10^3/uL (4.0-10.0)
[2022-08-08 11:44] LABS: APPEARANCE, URINE CLEAR (CLEAR); BACTERIA, URINE AUTO NEGATIVE (NEGATIVE); BILIRUBIN, URINE AUTO NEGATIVE (NEGATIVE); BLOOD, URINE BLOOD NEGATIVE (NEGATIVE); COLOR, URINE YELLOW (YELLOW); GLUCOSE, URINE (UA) AUTO NEGATIVE (NEGATIVE); KETONE, URINE AUTO NEGATIVE (NEGATIVE); LEUKOCYTE ESTERASE, URINE AUTO NEGATIVE (NEGATIVE); MUCUS, URINE SMALL (NEGATIVE); NITRITE, URINE AUTO NEGATIVE (NEGATIVE); PROTEIN, URINE AUTO NEGATIVE (NEGATIVE); RBC, URINE AUTO 0 /HPF (0-3); SPECIFIC GRAVITY URINE AUTO 1.018 (1.002-1.035); SQUAMOUS EPITHELIAL CELL UR AU 0 /HPF (0-6); UROBILINOGEN, URINE AUTO 0.2 mg/dL (0.0-2.0); WBC, URINE AUTO 0 /HPF (0-3)
[2022-08-08 11:54] LABS: HEMOGLOBIN A1c 7.2 % (4.0-6.0)
[2022-08-08 11:57] LABS: CREATININE, URINE 100.5 MG/DL; MAU/CREAT RATIO 26.8 MCG/MG (0.0-30.0)
[2022-08-08 12:01] LABS: ALBUMIN 4.3 G/DL (3.2-5.2); ALKALINE PHOSPHATASE 62 U/L (46-116); ALT/SGPT 22 U/L (7.0-40); AST/SGOT 26 U/L (<34); BILIRUBIN,TOTAL 0.6 MG/DL (0.3-1.2); BLOOD UREA NITROGEN 20 MG/DL (9-23); CALCIUM LEVEL 9.5 MG/DL (8.3-10.6); CARBON DIOXIDE LEVEL 27 MMOL/L (20-31); CHLORIDE LEVEL 102 MMOL/L (98-107); CHOLESTEROL LEVEL 149 MG/DL (<200); CHOLESTEROL RISK RATIO 3.23 (<5); CREATININE FOR GFR 1.01 MG/DL (0.70-1.30); GLOMERULAR FILTRATION RATE > 60.0 (>42); GLUCOSE, FASTING 191 MG/DL (74-106); POTASSIUM SERUM 4.5 MMOL/L (3.5-5.1); SODIUM LEVEL 137 MMOL/L (136-145); TOTAL PROTEIN 6.7 G/DL (5.7-8.2); TRIGLYCERIDES LEVEL 70 MG/DL (<150)
== END ==
LOC: M SFHCCLAY 08:19
PROVIDERS: ATTEND Family Medicine
DX: E11.9 Type 2 diabetes mellitus without complications (principal); M31.30 Wegener's granulomatosis without renal involvement; E78.00 Pure hypercholesterolemia, unspecified

== ENCOUNTER → 2023-02-07 | Outpatient (REF) | payer MEDICARE, BC ==
[2023-02-07 13:03] LABS: HEMOGLOBIN A1c 8.7 % (4.0-6.0)
[2023-02-07 13:08] LABS: BLOOD UREA NITROGEN 25 MG/DL (9-23); CALCIUM LEVEL 9.5 MG/DL (8.3-10.6); CARBON DIOXIDE LEVEL 28 MMOL/L (20-31); CHLORIDE LEVEL 102 MMOL/L (98-107); CREATININE FOR GFR 0.93 MG/DL (0.70-1.30); GLOMERULAR FILTRATION RATE > 60.0 (>42); GLUCOSE, FASTING 207 MG/DL (74-106); POTASSIUM SERUM 4.9 MMOL/L (3.5-5.1); SODIUM LEVEL 138 MMOL/L (136-145)
== END ==
LOC: M SFHCCLAY 08:25
PROVIDERS: ATTEND Family Medicine
DX: M31.31 Wegener's granulomatosis with renal involvement (principal); E78.00 Pure hypercholesterolemia, unspecified; E09.9 Drug or chemical induced diabetes mellitus without complications

== ENCOUNTER → 2023-04-08 | Outpatient (CLI) | payer MEDICARE, BC | LOC: M EKG 13:57 | PROVIDERS: ATTEND Physician Assistant | DX: R42 Dizziness and giddiness (principal); I45.3 Trifascicular block ==

== ENCOUNTER → 2023-04-08 | Outpatient (CLI) | payer MEDICARE, BC | LOC: M PLAIMG 14:52 | PROVIDERS: ATTEND Physician Assistant | DX: R42 Dizziness and giddiness (principal); I34.0 Nonrheumatic mitral (valve) insufficiency; I77.810 Thoracic aortic ectasia ==

== ENCOUNTER → 2023-04-25 | Outpatient (REF) | payer MEDICARE, BC ==
[2023-04-25 18:02] LABS: HEMATOCRIT 38.9 % (42.0-52.0); HEMOGLOBIN 12.4 g/dl (13.5-17.5); MEAN CORPUSCULAR HEMOGLOBIN 28.2 pg (27.0-33.0); MEAN CORPUSCULAR HGB CONC 31.9 g/dl (32.0-36.5); MEAN CORPUSCULAR VOLUME 88.6 fl (80.0-96.0); PLATELET COUNT, AUTOMATED 191 10^3/uL (150-450); RED BLOOD COUNT 4.39 10^6/uL (4.30-6.10); WHITE BLOOD COUNT 6.5 10^3/uL (4.0-10.0)
[2023-04-25 18:15] LABS: BLOOD UREA NITROGEN 21 MG/DL (9-23); CALCIUM LEVEL 8.9 MG/DL (8.3-10.6); CARBON DIOXIDE LEVEL 29 MMOL/L (20-31); CHLORIDE LEVEL 108 MMOL/L (98-107); CREATININE FOR GFR 0.86 MG/DL (0.70-1.30); GLOMERULAR FILTRATION RATE > 60.0 (>42); GLUCOSE, FASTING 143 MG/DL (74-106); POTASSIUM SERUM 4.3 MMOL/L (3.5-5.1); SODIUM LEVEL 142 MMOL/L (136-145)
== END ==
LOC: M LABDRAWC 17:28
PROVIDERS: ATTEND Physician Assistant
DX: I49.5 Sick sinus syndrome (principal)

== ENCOUNTER → 2023-05-05 | Outpatient (CLI) | payer MEDICARE, BC ==
[~2023-05-05] MED LIST changes: +B-12100010 PO; +IRON15CH PO; +JARD1TAB PO; +METF10004 PO
== END ==
LOC: M CLY 11:39
PROVIDERS: ATTEND Physician Assistant
DX: R07.9 Chest pain, unspecified (principal)

== ENCOUNTER 2023-05-08 10:47 | Day surgery (SDC) | payer MEDICARE, BC ==
[~2023-05-08] VITALS: Ht 182.9 cm; Wt 100.2 kg
[2023-05-08] MEDS ORDERED: LR 1,000 ML IV SCH ×2 (11:20→14:00)
[2023-05-08] MEDS ORDERED: AMIODARONE 150MG/3ML VIAL As Ordered ONE (12:08)
[2023-05-08] MEDS ORDERED: ISOVUE-300 61% 100ML VIAL As Ordered ONE (12:08)
[2023-05-08] MEDS: ceFAZolin SOD 2 GM in IV 1 EA IV ONE (12:39)
[2023-05-08] MEDS ORDERED: propofoL 200 MG/20 ML VIAL As Ordered ONE (12:42)
[2023-05-08] MEDS ORDERED: LIDOCAINE 2% 100MG/5ML SDV (FOR ANES.) As Ordered ONE (12:42)
[2023-05-08] MEDS ORDERED: ONDANSETRON 4MG 2ML VIAL As Ordered ONE (13:24)
[2023-05-08] MEDS: LIDOCAINE 1% SDV 30ML VIAL As Ordered ONE (13:35)
[2023-05-08] MEDS ORDERED: HYDROMORPHONE HCL 0.5 MG/ 0.5 ML SYRINGE IV PRN (14:00)
[2023-05-08] MEDS ORDERED: ONDANSETRON 4MG 2ML VIAL IV PRN (14:00)
[2023-05-08] MEDS ORDERED: fentaNYL 100 MCG/2 ML INJECTION IV PRN (14:00)
[2023-05-08] MEDS ORDERED: oxyCODONE 5MG TAB PO PRN (14:00)
[2023-05-08 15:20] VITALS: BP 150/72; TEMP 97.6; O2SAT 100
== END 2023-05-08 15:25 | disposition home or self-care (01) ==
LOC: M SDC 10:47
PROVIDERS: ATTEND Internal Medicine Cardiovascular Disease
DX: I49.5 Sick sinus syndrome (principal); I48.0 Paroxysmal atrial fibrillation; I45.3 Trifascicular block; I44.1 Atrioventricular block, second degree; R55 Syncope and collapse; I05.9 Rheumatic mitral valve disease, unspecified; E11.9 Type 2 diabetes mellitus without complications; I25.10 Atherosclerotic heart disease of native coronary artery without angina pectoris; Z87.891 Personal history of nicotine dependence; Z88.5 Allergy status to narcotic agent; Z88.8 Allergy status to other drugs, medicaments and biological substances; Z79.899 Other long term (current) drug therapy; Z79.84 Long term (current) use of oral hypoglycemic drugs; Z79.01 Long term (current) use of anticoagulants
CPT/HCPCS: 33208; 71045; 76000; 87635; 93005; C1785; C1898; J0690; J2405

== ENCOUNTER → 2023-06-10 | Outpatient (REF) | payer MEDICARE, BC ==
[2023-06-10 13:57] LABS: BASO % 0.6 % (0.0-1.0); EOS # 0.1 10^3/uL (0.0-0.5); EOS % 1.7 % (0.0-3.0); HEMOGLOBIN 12.9 g/dl (13.5-17.5); LYMPH # 1.5 10^3/uL (1.5-5.0); LYMPH % 23.7 % (24.0-44.0); MEAN CORPUSCULAR HEMOGLOBIN 27.7 pg (27.0-33.0); MEAN CORPUSCULAR HGB CONC 31.5 g/dl (32.0-36.5); MONO # 0.7 10^3/uL (0.0-0.8); MONO % 10.5 % (2.0-8.0); NEUTROPHILS # 4.1 10^3/uL (1.5-8.5); PLATELET COUNT, AUTOMATED 182 10^3/uL (150-450); RED BLOOD COUNT 4.66 10^6/uL (4.30-6.10); WHITE BLOOD COUNT 6.5 10^3/uL (4.0-10.0)
[2023-06-10 14:06] LABS: HEMOGLOBIN A1c 6.6 % (4.0-6.0)
[2023-06-10 14:15] LABS: ALBUMIN 4.1 G/DL (3.2-5.2); ALKALINE PHOSPHATASE 61 U/L (46-116); ALT/SGPT 11 U/L (7.0-40); AST/SGOT 16 U/L (<34); BILIRUBIN,TOTAL 0.5 MG/DL (0.3-1.2); BLOOD UREA NITROGEN 28 MG/DL (9-23); CALCIUM LEVEL 9.8 MG/DL (8.3-10.6); CARBON DIOXIDE LEVEL 29 MMOL/L (20-31); CHLORIDE LEVEL 103 MMOL/L (98-107); CREATININE FOR GFR 1.03 MG/DL (0.70-1.30); GLOMERULAR FILTRATION RATE > 60.0 (>42); GLUCOSE, FASTING 231 MG/DL (74-106); POTASSIUM SERUM 4.4 MMOL/L (3.5-5.1); SODIUM LEVEL 135 MMOL/L (136-145); TOTAL PROTEIN 6.6 G/DL (5.7-8.2)
== END ==
LOC: M SFHCCLAY 09:06
PROVIDERS: ATTEND Family Medicine
DX: E11.9 Type 2 diabetes mellitus without complications (principal); M31.30 Wegener's granulomatosis without renal involvement; E78.00 Pure hypercholesterolemia, unspecified; M31.31 Wegener's granulomatosis with renal involvement; E09.9 Drug or chemical induced diabetes mellitus without complications

== ENCOUNTER 2023-12-03 12:40 | Day surgery (SDC) | payer MEDICARE, BC ==
[~2023-12-03] VITALS: Ht 182.9 cm; Wt 100.8 kg
[~2023-12-03 12:40] MED LIST changes: +GABA-1172 PO; +GABA-1490 PO; -GABA-282 PO; -GABA600T4 PO; +ROSU5TAB40 PO; -ROSU5TAB5 PO
[2023-12-03] MEDS: GLUCAGON INJ 1MG VIAL IV STA (17:56)
[2023-12-03 18:02] LABS: BASO % 0.5 % (0.0-1.0); EOS # 0.1 10^3/uL (0.0-0.5); EOS % 1.2 % (0.0-3.0); HEMATOCRIT 44.3 % (42.0-52.0); HEMOGLOBIN 14.1 g/dl (13.5-17.5); LYMPH # 1.5 10^3/uL (1.5-5.0); LYMPH % 23.3 % (24.0-44.0); MEAN CORPUSCULAR HEMOGLOBIN 27.3 pg (27.0-33.0); MEAN CORPUSCULAR HGB CONC 31.8 g/dl (32.0-36.5); MEAN CORPUSCULAR VOLUME 85.7 fl (80.0-96.0); MONO # 0.7 10^3/uL (0.0-0.8); MONO % 11.1 % (2.0-8.0); NEUTROPHILS # 4.1 10^3/uL (1.5-8.5); NEUTROPHILS % 63.4 % (36.0-66.0); PLATELET COUNT, AUTOMATED 194 10^3/uL (150-450); RED BLOOD COUNT 5.17 10^6/uL (4.30-6.10); WHITE BLOOD COUNT 6.5 10^3/uL (4.0-10.0)
[2023-12-03 18:17] LABS: INR 1.11; PARTIAL THROMBOPLASTIN TIME 29.7 SECONDS (24.8-34.2)
[2023-12-03] MEDS ORDERED: propofoL 200 MG/20 ML VIAL As Ordered ONE (18:47)
[2023-12-03] MEDS ORDERED: LIDOCAINE 2% 100MG/5ML SDV (FOR ANES.) As Ordered ONE (18:47)
[2023-12-03] MEDS ORDERED: ONDANSETRON 4MG 2ML VIAL As Ordered ONE (19:03)
[2023-12-03] MEDS ORDERED: ROCURONIUM BROMIDE 50MG/5ML VIAL As Ordered ONE (19:03)
[2023-12-03] MEDS ORDERED: fentaNYL 100 MCG/2 ML INJECTION As Ordered ONE (19:03)
[2023-12-03 20:10] VITALS: BP 102/59; TEMP 98.3; O2SAT 98
== END 2023-12-03 20:45 | disposition home or self-care (01) ==
LOC: M ED 12:40 → M SDC 18:27
PROVIDERS: ATTEND Internal Medicine Gastroenterology
DX: T18.128A Food in esophagus causing other injury, initial encounter (principal); K44.9 Diaphragmatic hernia without obstruction or gangrene; I48.91 Unspecified atrial fibrillation; E11.9 Type 2 diabetes mellitus without complications; I25.10 Atherosclerotic heart disease of native coronary artery without angina pectoris; Z95.0 Presence of cardiac pacemaker; Z86.73 Personal history of transient ischemic attack (TIA), and cerebral infarction without residual deficits; J84.10 Pulmonary fibrosis, unspecified; M31.30 Wegener's granulomatosis without renal involvement
CPT/HCPCS: 43247; 80047; 85025; 85610; 85730; 99284; J1100; J1610; J2405; J3010

== ENCOUNTER → 2024-01-27 | Outpatient (REF) | payer MEDICARE, BC ==
[~2024-01-27] MED LIST changes: -ROSU5TAB40 PO; +ROSU5TAB49 PO
[2024-01-27 18:58] LABS: BASO # 0.1 10^3/uL (0.0-0.2); BASO % 0.8 % (0.0-1.0); EOS # 0.1 10^3/uL (0.0-0.5); EOS % 1.9 % (0.0-3.0); HEMATOCRIT 36.5 % (42.0-52.0); HEMOGLOBIN 11.5 g/dl (13.5-17.5); LYMPH # 1.5 10^3/uL (1.5-5.0); LYMPH % 22.9 % (24.0-44.0); MEAN CORPUSCULAR HEMOGLOBIN 27.9 pg (27.0-33.0); MEAN CORPUSCULAR HGB CONC 31.5 g/dl (32.0-36.5); MEAN CORPUSCULAR VOLUME 88.6 fl (80.0-96.0); MONO # 0.6 10^3/uL (0.0-0.8); NEUTROPHILS # 4.2 10^3/uL (1.5-8.5); NEUTROPHILS % 64.9 % (36.0-66.0); PLATELET COUNT, AUTOMATED 219 10^3/uL (150-450); RED BLOOD COUNT 4.12 10^6/uL (4.30-6.10); WHITE BLOOD COUNT 6.4 10^3/uL (4.0-10.0)
[2024-01-27 19:07] LABS: ERYTHROCYTE SEDIMENTATION RATE 17 mm/hr (0-20)
[2024-01-27 19:21] LABS: ALBUMIN 4.2 G/DL (3.2-5.2); ALKALINE PHOSPHATASE 69 U/L (40-129); ALT/SGPT 13 U/L (7.0-40); AST/SGOT 13 U/L (<34); BILIRUBIN,TOTAL 0.6 MG/DL (0.3-1.2); BLOOD UREA NITROGEN 25 MG/DL (9-23); CARBON DIOXIDE LEVEL 28 MMOL/L (20-31); CHLORIDE LEVEL 107 MMOL/L (98-107); CHOLESTEROL LEVEL 165 MG/DL (<200); CHOLESTEROL RISK RATIO 3.82 (<5); CREATININE FOR GFR 0.98 MG/DL (0.70-1.30); GLOMERULAR FILTRATION RATE > 60.0 (>42); GLUCOSE, FASTING 169 MG/DL (74-106); HDL CHOLESTEROL 43.1 MG/DL (>40); LDL CHOLESTEROL 98.1 MG/DL (<100); NON-HDL-C 121.9 MG/DL; POTASSIUM SERUM 4.7 MMOL/L (3.5-5.1); SODIUM LEVEL 139 MMOL/L (136-145); TOTAL PROTEIN 7.3 G/DL (5.7-8.2); TRIGLYCERIDES LEVEL 119 MG/DL (<150)
[2024-01-27 19:22] LABS: FREE T4 1.14 NG/DL (0.89-1.76); THYROID STIMULATING HORMONE 2.205 uIU/ML (0.55-4.78)
[2024-01-27 19:43] LABS: HEMOGLOBIN A1c 7.8 % (4.0-6.0)
== END ==
LOC: M SFHCCLAY 08:57
PROVIDERS: ATTEND Family Medicine
DX: M31.31 Wegener's granulomatosis with renal involvement (principal); E11.9 Type 2 diabetes mellitus without complications; E78.00 Pure hypercholesterolemia, unspecified

== ENCOUNTER → 2024-04-07 | Outpatient (CLI) | payer MEDICARE, BC ==
[~2024-04-07] MED LIST changes: +E-Z-GAS II EFFERVESCENT PACKET (SODIUM BICARB./CITRIC ACID/SIMETHICONE) As Ordered ONE; +E-Z-HD 98% w/w 340GM SUSP BTL As Ordered ONE; +E-Z-PAQUE 96% w/w SUSP 176GM BTL As Ordered ONE
== END ==
LOC: M RAD 09:24
PROVIDERS: ATTEND Surgery
DX: R47.02 Dysphasia (principal); Z95.0 Presence of cardiac pacemaker

== ENCOUNTER → 2024-06-25 | Outpatient (REF) | payer MEDICARE, BC ==
[~2024-06-25] MED LIST changes: -E-Z-GAS II EFFERVESCENT PACKET (SODIUM BICARB./CITRIC ACID/SIMETHICONE) As Ordered ONE; -E-Z-HD 98% w/w 340GM SUSP BTL As Ordered ONE; -E-Z-PAQUE 96% w/w SUSP 176GM BTL As Ordered ONE
[2024-06-25 18:02] LABS: BASO % 0.5 % (0.0-1.0); EOS # 0.2 10^3/uL (0.0-0.5); EOS % 2.9 % (0.0-3.0); HEMATOCRIT 38.7 % (42.0-52.0); HEMOGLOBIN 12.1 g/dl (13.5-17.5); LYMPH # 1.3 10^3/uL (1.5-5.0); LYMPH % 22.5 % (24.0-44.0); MEAN CORPUSCULAR HEMOGLOBIN 26.8 pg (27.0-33.0); MEAN CORPUSCULAR HGB CONC 31.3 g/dl (32.0-36.5); MEAN CORPUSCULAR VOLUME 85.6 fl (80.0-96.0); MONO # 0.6 10^3/uL (0.0-0.8); MONO % 10.9 % (2.0-8.0); NEUTROPHILS # 3.7 10^3/uL (1.5-8.5); PLATELET COUNT, AUTOMATED 215 10^3/uL (150-450); RED BLOOD COUNT 4.52 10^6/uL (4.30-6.10); WHITE BLOOD COUNT 5.8 10^3/uL (4.0-10.0)
[2024-06-25 18:11] LABS: ERYTHROCYTE SEDIMENTATION RATE 26 mm/hr (0-20)
[2024-06-25 18:28] LABS: TOTAL PROTEIN,RANDOM URINE 23.6 MG/DL (0.0-14.0)
[2024-06-25 18:33] LABS: CREATININE,RANDOM URINE 141.9 MG/DL
[2024-06-25 18:34] LABS: ALBUMIN 4.2 G/DL (3.2-5.2); BILIRUBIN,TOTAL 0.6 MG/DL (0.3-1.2); CALCIUM LEVEL 9.7 MG/DL (8.3-10.6); CREATININE FOR GFR 1.03 MG/DL (0.70-1.30); GLOMERULAR FILTRATION RATE 73.9 (>42); POTASSIUM SERUM 4.7 MMOL/L (3.5-5.1)
== END ==
LOC: M LABDRAWC 17:14
PROVIDERS: ATTEND Internal Medicine Rheumatology
DX: M31.31 Wegener's granulomatosis with renal involvement (principal); Z79.899 Other long term (current) drug therapy

== ENCOUNTER 2024-10-24 08:09 | Emergency (ER) | payer MEDICARE, BC ==
[~2024-10-24] VITALS: Ht 182.9 cm; Wt 100.3 kg
[2024-10-24] MEDS ORDERED: GABA-1490 (08:20)
[2024-10-24] MEDS ORDERED: GLIM2TAB29 (08:20)
[2024-10-24 12:01] VITALS: BP 114/57; TEMP 96.2; O2SAT 97
== END 2024-10-24 12:23 | disposition home or self-care (01) ==
LOC: M ED 08:09
DX: T18.128A Food in esophagus causing other injury, initial encounter (principal); E11.9 Type 2 diabetes mellitus without complications; Z95.0 Presence of cardiac pacemaker; Z88.5 Allergy status to narcotic agent; Z88.8 Allergy status to other drugs, medicaments and biological substances; Z79.01 Long term (current) use of anticoagulants; Z79.84 Long term (current) use of oral hypoglycemic drugs; Z79.899 Other long term (current) drug therapy

== ENCOUNTER → 2025-01-20 | Outpatient (REF) | payer MEDICARE, BC ==
[~2025-01-20] MED LIST changes: +GABA-1490; +GLIM2TAB29
[2025-01-20 13:08] LABS: PLATELET COUNT, AUTOMATED 245 10^3/uL (150-450)
[2025-01-20 13:44] LABS: ALT/SGPT 22.0 U/L (7.0-40); AST/SGOT 23.0 U/L (<34); CALCIUM LEVEL 8.9 MG/DL (8.3-10.6); CARBON DIOXIDE LEVEL 26.0 MMOL/L (20-31); CHLORIDE LEVEL 101.0 MMOL/L (98-107); CHOLESTEROL LEVEL 127.0 MG/DL (<200); CHOLESTEROL RISK RATIO 2.64 (<5); CREATININE FOR GFR 1.03 MG/DL (0.70-1.30); GLOMERULAR FILTRATION RATE 73.4 (>35); LDL CHOLESTEROL 64.8 MG/DL (<100); NON-HDL-C 79.0 MG/DL; POTASSIUM SERUM 4.6 MMOL/L (3.5-5.1); SODIUM LEVEL 138.0 MMOL/L (136-145); TRIGLYCERIDES LEVEL 71.0 MG/DL (<150); VITAMIN B12 LEVEL 415.0 PG/ML (211-911)
[2025-01-20 13:47] LABS: ESTIMATED AVERAGE GLUCOSE 160.0 MG/DL (60-110)
[2025-01-20 13:48] LABS: IRON (FE) 34.0 UG/DL (65-175); PERCENT SATURATION 9.6 % (19.7-50.0)
== END ==
LOC: M SFHCCLAY 08:44
PROVIDERS: ATTEND Physician Assistant
DX: Z00.00 Encounter for general adult medical examination without abnormal findings (principal); E11.40 Type 2 diabetes mellitus with diabetic neuropathy, unspecified; I48.0 Paroxysmal atrial fibrillation; E78.00 Pure hypercholesterolemia, unspecified; M31.30 Wegener's granulomatosis without renal involvement; E53.8 Deficiency of other specified B group vitamins; K21.9 Gastro-esophageal reflux disease without esophagitis; J43.9 Emphysema, unspecified; D64.9 Anemia, unspecified

== ENCOUNTER → 2025-01-26 | Outpatient (CLI) | payer MEDICARE, BC | LOC: M CLY 09:08 | PROVIDERS: ATTEND Physician Assistant | DX: J98.4 Other disorders of lung (principal) ==

== ENCOUNTER → 2025-02-07 | Outpatient (REF) | payer MEDICARE, BC ==
[~2025-02-07] MED LIST changes: -BACTDSTA PO; +SULF-8 PO
[2025-02-07 18:04] LABS: BASO # 0.1 10^3/uL (0.0-0.2); BASO % 0.7 % (0.0-1.0); EOS # 0.1 10^3/uL (0.0-0.5); EOS % 2.1 % (0.0-3.0); LYMPH # 1.2 10^3/uL (1.5-5.0); LYMPH % 17.5 % (24.0-44.0); MONO # 0.6 10^3/uL (0.0-0.8); MONO % 9.4 % (2.0-8.0); NEUTROPHILS # 4.8 10^3/uL (1.5-8.5); NEUTROPHILS % 70.0 % (36.0-66.0); PLATELET COUNT, AUTOMATED 255 10^3/uL (150-450)
[2025-02-07 18:12] LABS: ALT/SGPT 11.0 U/L (7.0-40); AST/SGOT 19.0 U/L (<34); CALCIUM LEVEL 9.1 MG/DL (8.3-10.6); CARBON DIOXIDE LEVEL 26.0 MMOL/L (20-31); CHLORIDE LEVEL 107.0 MMOL/L (98-107); CREATININE FOR GFR 1.17 MG/DL (0.70-1.30); GLOMERULAR FILTRATION RATE 63.0 (>35); IRON (FE) 24.0 UG/DL (65-175); MAGNESIUM LEVEL 1.2 MG/DL (1.8-2.4); PERCENT SATURATION 7.5 % (19.7-50.0); POTASSIUM SERUM 4.7 MMOL/L (3.5-5.1); SODIUM LEVEL 144.0 MMOL/L (136-145)
== END ==
LOC: M SFHCCLAY 13:57
PROVIDERS: ATTEND Physician Assistant
DX: Z00.00 Encounter for general adult medical examination without abnormal findings (principal); R06.02 Shortness of breath; R79.0 Abnormal level of blood mineral; E11.40 Type 2 diabetes mellitus with diabetic neuropathy, unspecified; I48.0 Paroxysmal atrial fibrillation; E78.00 Pure hypercholesterolemia, unspecified; M31.31 Wegener's granulomatosis with renal involvement; E53.8 Deficiency of other specified B group vitamins; K21.9 Gastro-esophageal reflux disease without esophagitis; J43.9 Emphysema, unspecified

== ENCOUNTER → 2025-02-07 | Outpatient (CLI) | payer MEDICARE, BC | LOC: M CLY 13:59 | PROVIDERS: ATTEND Physician Assistant | DX: R06.02 Shortness of breath (principal); R91.8 Other nonspecific abnormal finding of lung field ==

== ENCOUNTER → 2025-02-22 | Outpatient (REF) | payer MEDICARE, BC ==
[2025-02-22 18:46] LABS: PLATELET COUNT, AUTOMATED 193 10^3/uL (150-450)
[2025-02-22 18:53] LABS: MAGNESIUM LEVEL 1.3 MG/DL (1.8-2.4)
[2025-02-22 18:54] LABS: IRON (FE) 36.0 UG/DL (65-175); PERCENT SATURATION 10.2 % (19.7-50.0)
[2025-02-22 18:57] LABS: VITAMIN B12 LEVEL 488.0 PG/ML (211-911)
== END ==
LOC: M SFHCCLAY 10:08
PROVIDERS: ATTEND Physician Assistant
DX: Z00.00 Encounter for general adult medical examination without abnormal findings (principal); J18.9 Pneumonia, unspecified organism; I51.7 Cardiomegaly; R79.0 Abnormal level of blood mineral; D64.9 Anemia, unspecified; E11.40 Type 2 diabetes mellitus with diabetic neuropathy, unspecified; E11.9 Type 2 diabetes mellitus without complications; I48.0 Paroxysmal atrial fibrillation; E78.00 Pure hypercholesterolemia, unspecified; M31.31 Wegener's granulomatosis with renal involvement; E53.8 Deficiency of other specified B group vitamins; K21.9 Gastro-esophageal reflux disease without esophagitis; J43.9 Emphysema, unspecified

== ENCOUNTER → 2025-03-01 | Outpatient (REF) | payer MEDICARE, BC ==
[2025-03-01 18:19] LABS: ALT/SGPT 29.0 U/L (7.0-40); AST/SGOT 21.0 U/L (<34); CALCIUM LEVEL 9.7 MG/DL (8.3-10.6); CARBON DIOXIDE LEVEL 24.0 MMOL/L (20-31); CHLORIDE LEVEL 100.0 MMOL/L (98-107); CREATININE FOR GFR 1.2 MG/DL (0.70-1.30); GLOMERULAR FILTRATION RATE 61.1 (>35); POTASSIUM SERUM 4.8 MMOL/L (3.5-5.1); SODIUM LEVEL 136.0 MMOL/L (136-145)
[2025-03-01 18:33] LABS: BASO # 0.0 10^3/uL (0.0-0.2); BASO % 0.0 % (0.0-1.0); EOS # 0.0 10^3/uL (0.0-0.5); EOS % 0.0 % (0.0-3.0); LYMPH # 0.8 10^3/uL (1.5-5.0); LYMPH % 12.7 % (24.0-44.0); MONO # 0.4 10^3/uL (0.0-0.8); MONO % 5.6 % (2.0-8.0); NEUTROPHILS # 5.4 10^3/uL (1.5-8.5); NEUTROPHILS % 81.4 % (36.0-66.0); PLATELET COUNT, AUTOMATED 225 10^3/uL (150-450)
[2025-03-01 18:48] LABS: TOTAL PROTEIN,RANDOM URINE 64.4 MG/DL (0.0-14.0)
[2025-03-04 15:27] LABS: MYELOPEROXIDASE ANTIBODY < 1.0 AI (<1.0)
== END ==
LOC: M LABDRAWC 17:20
PROVIDERS: ATTEND Internal Medicine Rheumatology
DX: M31.31 Wegener's granulomatosis with renal involvement (principal)